=== PATIENT | female | born 1995 | race Caucasian/White ===

== ENCOUNTER 2017-03-19 22:11 | Observation (INO) | payer OTHER ==
[2017-03-20] MEDS ORDERED: NS 0.9% 1000 ML* 1,000 ML IV ONE (02:19)
[2017-03-20 03:01] LABS: Hematocrit 43 % (35-47); Hemoglobin 14.7 g/dl (12.0-16.0); Mean Corpuscular HGB Conc 34 g/dl (31-36); Mean Corpuscular Hemoglobin 29 pg (27-31); Mean Corpuscular Volume 86 fL (80-97); Mean Platelet Volume 8 um3 (7.4-10.4); Red Blood Count 5.04 10^6/ul (4.0-5.4); Red Cell Distribution Width 13 % (10.5-15)
[2017-03-20 03:13] LABS: Urine Bacteria 1+ (Absent); Urine Bilirubin Negative (Negative); Urine Glucose Negative (Negative); Urine Nitrite Negative (Negative)
[2017-03-20 03:17] LABS: ALT 11 U/L (7-52); AST 10 U/L (13-39); Albumin 3.8 g/dL (3.2-5.2); Alkaline Phosphatase 61 U/L (34-104); Anion Gap 9 mmol/L (2-11); BUN/Creatinine Ratio 14.3 (8-20); Blood Urea Nitrogen 10 mg/dL (6-24); C Reactive Protein 12.47 mg/L (< 5.00); CO2 Carbon Dioxide 24 mmol/L (22-32); Calcium 9.6 mg/dL (8.6-10.3); Chloride 103 mmol/L (101-111); Cholesterol 243 mg/dL; EGFR African American 134.6 (>60); EGFR Non-African American 104.6 (>60); Globulin 3.4 g/dL (2-4); Glucose 89 mg/dL (70-100); HDL Cholesterol 64.8 mg/dL; LDL Cholesterol 156 mg/dL; Potassium 3.5 mmol/L (3.5-5.0); Sodium 136 mmol/L (133-145); Total Protein 7.2 g/dL (6.4-8.9); Triglycerides 111 mg/dL
[2017-03-20 04:00] LABS: Erythrocyte Sed Rate 13 mm/Hr (0-14)
[2017-03-20] MEDS ORDERED: oxyCODONE/Acetamin 5/325 MG* TAB PO ONE (04:36)
[2017-03-20] MEDS ORDERED: Aspirin TAB* 325 MG PO ONE (04:59)
--- NOTE | 2017-03-20 05:05 | HP ---
H&P (Free Text) History and Physical: PCP: Ootniel Valera MD Date/Time of Evaluation: 03/20/2017 0505 CC: RUE W/N/T & slurred speech HPI: Ms Simon is a super morbidly obese 21YO female HX papilledema 2nd L optic neuritis recently diagnosed and undergoing outpatient work up with an MRI scheduled for Wednesday. She presents tonight relating rapid onset at ~2130 of R hand W/N/T and incoordination spreading up the RUE and into the R jaw with associated slurred speech. She also had a L retro-orbital dull headache which has previously been associated with her optic neuritis, although this evening she also had blurring in her R eye. She denies chest pain, SOB, palpitations, light-headedness, sweats, F/C, N/V, or other issues. The symptoms lasted for ~ 90 minutes before spontaneously resolving. She has no history of similar. She denies exacerbating or alleviating factors. PMedHx depression Ambulatory Orders Prozac CAP* 25 mg PO DAILY 04/02/14 Control Pill* 1 tab PO DAILY 05/09/15 Cyclobenzaprine TAB* [Flexeril TAB*] 10 mg PO 05/09/15 Gabapentin CAP(*) [Neurontin CAP(*)] 300 mg PO DAILY 05/09/15 Naproxen TAB* [Naprosyn TAB*] 500 mg PO PRN 05/09/15 Allergies No Known Allergies Allergy (Verified 03/19/17 09:41) PSurgHx B foot surgery SocHx: no tobacco, rare alcohol, denies recreational drugs; lives with a roommate; unemployed; full code status FamHx: Mother & Father: healthy; otherwise positive for HTN ROS: as above, otherwise reviewed and all were negative Constitutional: NAD, normally developed, super morbidly obese white female vitals: Vital Signs Temp 36.6 C 03/19/17 22:19 Pulse 109 03/19/17 22:19 Resp 18 03/20/17 04:48 BP 139/92 03/19/17 22:19 Pulse Ox 97 03/20/17 02:55 Intake & Output 03/19/17 03/19/17 03/20/17 11:59 23:59 11:59 Weight 141.974 kg HEENM: atraumatic; sclera/conjunctiva: non-icteric/clear; hearing: clinically intact; oropharynx: clear, mucosa moist Neck: soft tissue: non-tender, no nuchal rigidity; thyroid: normal Pulmonary: clear to auscultation bilaterally, good aeration, no accessory muscle use CV: RR/RR, normal S1S2, no carotid bruit, no jugular venous distention, 2+ B DP/ PT, no edema Abdominal: soft, non-distended, non-tender, no rebound/guarding/rigidity, normoactive bowel sounds, no hepatosplenomegaly or masses, no costovertebral angle tenderness Musculoskeletal: general: grossly intact, no palpable tenderness Integumental: normal appearance and texture of exposed skin Neurological cranial nerves II: visual solano intact III/IV/: symmetric light reflex, EOMI/PERRLA, intact convergence & accommodation V: intact corneal reflex, facial sensation, & mastication VII: symmetric facial symmetry VIII: hearing intact AU IX/X: symmetric palatal motion, no dysarthria XI: intact shoulder shrug XII: midline tongue protrusion, normal voice articulation motor LUE: 4+/5 proximally, distally, & ela teacher strength RUE: 4+/5 proximally, distally, & ela teacher strength LLE: 4+/5 proximally & distally RLE: 4+/5 proximally & distally coordination finger/nose: symmetric, intact heal/esquivel: symmetric, intact sensory crude touch: intact globally pinprick: intact globally vibration: intact globally proprioception: intact globally DTRs biceps: 2+ B triceps: 2+ B brachioradialis: 2+ B patellar: 2+ B Achilles: 2+ B Babinski: equivocal B Psychiatric orientation: AA&O to PPS affect: calm mood: cooperative eye contact: good content: reliable responses: timely insight: good Testing: Lab Results 03/20/17 03/20/17 03/20/17 Range/Units 02:51 02:51 02:51 WBC 11.0 H (3.5-10.8) 10^3/ul RBC 5.04 (4.0-5.4) 10^6/ul Hgb 14.7 (12.0-16.0) g/dl Hct 43 (35-47) % MCV 86 (80-97) fL MCH 29 (27-31) pg MCHC 34 (31-36) g/dl RDW 13 (10.5-15) % Plt Count 356 (150-450) 10^3/ul MPV 8 (7.4-10.4) um3 Neut % (Auto) 68.8 (38-83) % Lymph % (Auto) 24.6 L (25-47) % Brule % (Auto) 5.9 (1-9) % Eos % (Auto) 0.4 (0-6) % Baso % (Auto) 0.3 (0-2) % Absolute Neuts (auto) 7.5 (1.5-7.7) 10^3/ul Absolute Lymphs (auto) 2.7 (1.0-4.8) 10^3/ul Absolute Monos (auto) 0.6 (0-0.8) 10^3/ul Absolute Eos (auto) 0 (0-0.6) 10^3/ul Absolute Basos (auto) 0 (0-0.2) 10^3/ul Absolute Nucleated RBC 0.01 10^3/ul Nucleated RBC % 0.1 ESR 13 (0-14) mm/Hr INR (Anticoag Therapy) 0.99 (0.89-1.11) APTT 27.4 (26.0-36.3) seconds Sodium 136 (133-145) mmol/L Potassium 3.5 (3.5-5.0) mmol/L Chloride 103 (101-111) mmol/L Carbon Dioxide 24 (22-32) mmol/L Anion Gap 9 (2-11) mmol/L BUN 10 (6-24) mg/dL Creatinine 0.70 (0.51-0.95) mg/dL Est GFR ( Amer) 134.6 (>60) Est GFR (Non-Af Amer) 104.6 (>60) BUN/Creatinine Ratio 14.3 (8-20) Glucose 89 (70-100) mg/dL Lactic Acid (0.5-2.0) mmol/L Calcium 9.6 (8.6-10.3) mg/dL Total Bilirubin 0.40 (0.2-1.0) mg/dL AST 10 L (13-39) U/L ALT 11 (7-52) U/L Alkaline Phosphatase 61 (34-104) U/L Troponin I 0.00 (<0.04) ng/mL C-Reactive Protein 12.47 H (< 5.00) mg/L Total Protein 7.2 (6.4-8.9) g/dL Albumin 3.8 (3.2-5.2) g/dL Globulin 3.4 (2-4) g/dL Albumin/Globulin Ratio 1.1 (1-3) Triglycerides 111 mg/dL Cholesterol 243 mg/dL LDL Cholesterol 156 mg/dL HDL Cholesterol 64.8 mg/dL Beta HCG, Quant < 0.60 mIU/mL Urine Color Urine Appearance Urine pH (5-9) Ur Specific [place] (1.010-1.030) Urine Protein (Negative) Urine Ketones (Negative) Urine Blood (Negative) Urine Nitrate (Negative) Urine Bilirubin (Negative) Urine Urobilinogen (Negative) Ur Leukocyte Esterase (Negative) Urine WBC (Auto) (Absent) Urine RBC (Auto) (Absent) Ur Squamous Epith Cells (Absent) Urine Bacteria (Absent) Urine Glucose (Negative) 03/20/17 03/20/17 Range/Units 02:51 02:51 WBC (3.5-10.8) 10^3/ul RBC (4.0-5.4) 10^6/ul Hgb (12.0-16.0) g/dl Hct (35-47) % MCV (80-97) fL MCH (27-31) pg MCHC (31-36) g/dl RDW (10.5-15) % Plt Count (150-450) 10^3/ul MPV (7.4-10.4) um3 Neut % (Auto) (38-83) % Lymph % (Auto) (25-47) % Brule % (Auto) (1-9) % Eos % (Auto) (0-6) % Baso % (Auto) (0-2) % Absolute Neuts (auto) (1.5-7.7) 10^3/ul Absolute Lymphs (auto) (1.0-4.8) 10^3/ul Absolute Monos (auto) (0-0.8) 10^3/ul Absolute Eos (auto) (0-0.6) 10^3/ul Absolute Basos (auto) (0-0.2) 10^3/ul Absolute Nucleated RBC 10^3/ul Nucleated RBC % ESR (0-14) mm/Hr INR (Anticoag Therapy) (0.89-1.11) APTT (26.0-36.3) seconds Sodium (133-145) mmol/L Potassium (3.5-5.0) mmol/L Chloride (101-111) mmol/L Carbon Dioxide (22-32) mmol/L Anion Gap (2-11) mmol/L BUN (6-24) mg/dL Creatinine (0.51-0.95) mg/dL Est GFR ( Amer) (>60) Est GFR (Non-Af Amer) (>60) BUN/Creatinine Ratio (8-20) Glucose (70-100) mg/dL Lactic Acid 1.5 (0.5-2.0) mmol/L Calcium (8.6-10.3) mg/dL Total Bilirubin (0.2-1.0) mg/dL AST (13-39) U/L ALT (7-52) U/L Alkaline Phosphatase (34-104) U/L Troponin I (<0.04) ng/mL C-Reactive Protein (< 5.00) mg/L Total Protein (6.4-8.9) g/dL Albumin (3.2-5.2) g/dL Globulin (2-4) g/dL Albumin/Globulin Ratio (1-3) Triglycerides mg/dL Cholesterol mg/dL LDL Cholesterol mg/dL HDL Cholesterol mg/dL Beta HCG, Quant mIU/mL Urine Color Yellow Urine Appearance Cloudy Urine pH 5.0 (5-9) Ur Specific [place] 1.026 (1.010-1.030) Urine Protein Negative (Negative) Urine Ketones 1+ H (Negative) Urine Blood Negative (Negative) Urine Nitrate Negative (Negative) Urine Bilirubin Negative (Negative) Urine Urobilinogen Negative (Negative) Ur Leukocyte Esterase 2+ H (Negative) Urine WBC (Auto) 1+(6-10/hpf) H (Absent) Urine RBC (Auto) 1+(3-5/hpf) H (Absent) Ur Squamous Epith Cells Present H (Absent) Urine Bacteria 1+ H (Absent) Urine Glucose Negative (Negative) ECG, personally reviewed: sinus tachycardia rate 128, no ischemia CT brain WO, personally reviewed: IMPRESSION: No acute intracranial hemorrhage mass effect or midline shift. If clinically indicated followup outpatient MRI of brain may be needed. Impression: 21F presenting with TIA vs complex migraine DIAGNOSIS & PLAN Primary TIA vs complex migraine : neurochecks : telemetry : aspirin : supplemental oxygen : recheck CT brain WO this afternoon : consider neurology consult in AM : supportive care papilledema : continue outpatient follow up with ophthalmology : keep MRI brain appointment scheduled Secondary depression : continue fluoxetine Admission Rational: CDU observation for TIA vs complex migraine DVTp: SCDs & heparin SQ Code Status: full
--- NOTE | 2017-03-20 07:17 | ED ---
Ileana Hensley SooYoung, scribed for Ke Palencia MD on 03/20/17 at 0214 . Neurological HPI - HPI Summary HPI Summary: A 21 y/o F presents to ED with c/o severe L-parietal BLACKMAN onset approx 2129 yesterday. Associated sx: UE numbness radiating to jaw and torso; blurry vision , weakness, difficulty finding words since resolved, slurred speech since resolved, loss of coordination, hot and cold flashes, confusion. Numbness in UE was the initial sx, has since resolved, and the BLACKMAN followed briefly afterwards. Episode of numbness lasted approx 30 minutes. Pt denies LE changes, hearing changes, recent illness. PMHx: BLACKMAN, recent dx of optic neuritis. She's scheduled to get an MRI in three days for swollen optic nerve. She states she's lost about half the vision in her L eye onset 1 week ago. She also had a severe BLACKMAN two weeks ago. The sx today are different than the sx she had with her optic neuritis. Pt takes control. 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 Onset/Duration: Sudden Onset, Started days ago, Still Present Timing: Constant Onset Severity: Severe Current Severity: Moderate Headache Location: Parietal (Left) Pain Intensity: 7 - out of 10 Associated Signs and Symptoms: Positive: Visual Changes, Headache, Confusion, Weakness, Impaired Speech, Numbness - UE radiating to jaw and torso - Allergy/Home Medications Allergies/Adverse Reactions: Allergies Allergy/AdvReac Type Severity Reaction Status Date / Time No Known Allergies Allergy Verified 03/19/17 09:41 PMH/Surg Hx/FS Hx/Imm Hx Previously Healthy: No Endocrine/Hematology History: Denies: Hx Diabetes Cardiovascular History: Denies: Hx Hypertension - BLOOD PRESSURE HAS BEEN ELEVATED WITH SYMPTS - NO MEDS, Hx Pacemaker/ICD Respiratory History: Denies: Hx Asthma History: Denies: Hx Renal Disease Sensory History: Denies: Hx Hearing Aid Psychiatric History: Reports: Hx Panic Disorder - Surgical History Surgery Procedure, Year, and Place: BI-LATERAL FEET SURGERY TO REMOVE BONE; Infectious Disease History: No Infectious Disease History: Denies: Traveled Outside the [place] in Last 30 Days - Family History Known Family History: Positive: Cardiac Disease, Other - CVA - Social History Occupation: Employed Full-time Lives: With Family - friend Alcohol Use: None Hx Substance Use: No Substance Use Type: Reports: None Hx Tobacco Use: No Smoking Status (MU): Never Smoked Tobacco Review of Systems Positive: Other - pos: hot/cold flashes Positive: Blurred Vision Positive: Other - neg: hearing changes Positive: Other - neg: LE changes Neurological: Other - pos: confusion, loss of coordination, difficulty finding words Positive: Headache - severe, Weakness, Numbness - UE, Slurred Speech All Other Systems Reviewed And Are Negative: Yes Physical Exam - Summary Physical Exam Summary: The patient is well-nourished in no acute distress and in no acute pain. The skin is warm and dry and skin color reflects adequate perfusion. HEENT: The head is normocephalic and atraumatic. The pupils are equal and reactive. EOMI/BROOKE. No nystagmus. Some loss of visual acuity on medial superoinferior cuts of L eye. The conjunctivae are clear and without drainage. Nares are patent and without drainage. Mouth reveals moist mucous membranes and the throat is without erythema and exudate. Tongue is mid-line. The external ears are intact. The ear canals are patent and without drainage. The tympanic membranes are intact. Neck is supple with full range of motion and non-tender. There are no carotid bruits. There is no neck vein distension. Respiratory: Chest is non-tender. Lungs are clear to auscultation and breath sounds are symmetrical and equal. Cardiovascular: Tachycardia. There is no murmur or rub auscultated. There is no peripheral edema and pulses are symmetrical and equal. Abdomen: The abdomen is soft, obese, and non-tender. There are normal bowel sounds heard in all four quadrants and there is no organomegaly palpated. Musculoskeletal: There is no back pain noted. Extremities are non-tender with full range of motion. There is good capillary refill. There is no peripheral edema or calf tenderness elicited. Neurological: Patient is alert and oriented to person, place and time. Speech is appropriate. The patient has symmetrical motor strength in all four extremities. Cranial nerves 2-12 are intact. No facial droop, no facial numbness. Deep tendon reflexes are symmetrical and equal in all four extremities. Negative finger to nose, negative heel to esquivel. Negative Babinski. Psychiatric: The patient has an appropriate affect and does not exhibit any anxiety or depression. Triage Information Reviewed: Yes Vital Signs On Initial Exam: Initial Vitals Temp Pulse Resp BP Pulse Ox 98 F 109 20 139/92 97 03/19/17 22:19 03/19/17 22:19 03/19/17 22:19 03/19/17 22:19 03/19/17 22:19 Vital Signs Reviewed: Yes - [place] Coma Scale Coma Scale Total: 15 Diagnostics - Vital Signs Vital Signs Temp Pulse Resp BP Pulse Ox 03/19/17 22:19 98 F 109 20 139/92 97 - Laboratory Lab Results: Lab Results 03/20/17 03/20/17 03/20/17 Range/Units 02:51 02:51 02:51 WBC 11.0 H (3.5-10.8) 10^3/ul RBC 5.04 (4.0-5.4) 10^6/ul Hgb 14.7 (12.0-16.0) g/dl Hct 43 (35-47) % MCV 86 (80-97) fL MCH 29 (27-31) pg MCHC 34 (31-36) g/dl RDW 13 (10.5-15) % Plt Count 356 (150-450) 10^3/ul MPV 8 (7.4-10.4) um3 Neut % (Auto) 68.8 (38-83) % Lymph % (Auto) 24.6 L (25-47) % [place] % (Auto) 5.9 (1-9) % Eos % (Auto) 0.4 (0-6) % Baso % (Auto) 0.3 (0-2) % Absolute Neuts (auto) 7.5 (1.5-7.7) 10^3/ul Absolute Lymphs (auto) 2.7 (1.0-4.8) 10^3/ul Absolute Monos (auto) 0.6 (0-0.8) 10^3/ul Absolute Eos (auto) 0 (0-0.6) 10^3/ul Absolute Basos (auto) 0 (0-0.2) 10^3/ul Absolute Nucleated RBC 0.01 10^3/ul Nucleated RBC % 0.1 ESR 13 (0-14) mm/Hr INR (Anticoag Therapy) 0.99 (0.89-1.11) APTT 27.4 (26.0-36.3) seconds Sodium 136 (133-145) mmol/L Potassium 3.5 (3.5-5.0) mmol/L Chloride 103 (101-111) mmol/L Carbon Dioxide 24 (22-32) mmol/L Anion Gap 9 (2-11) mmol/L BUN 10 (6-24) mg/dL Creatinine 0.70 (0.51-0.95) mg/dL Est GFR ( Amer) 134.6 (>60) Est GFR (Non-Af Amer) 104.6 (>60) BUN/Creatinine Ratio 14.3 (8-20) Glucose 89 (70-100) mg/dL Lactic Acid (0.5-2.0) mmol/L Calcium 9.6 (8.6-10.3) mg/dL Total Bilirubin 0.40 (0.2-1.0) mg/dL AST 10 L (13-39) U/L ALT 11 (7-52) U/L Alkaline Phosphatase 61 (34-104) U/L Troponin I 0.00 (<0.04) ng/mL C-Reactive Protein 12.47 H (< 5.00) mg/L Total Protein 7.2 (6.4-8.9) g/dL Albumin 3.8 (3.2-5.2) g/dL Globulin 3.4 (2-4) g/dL Albumin/Globulin Ratio 1.1 (1-3) Triglycerides 111 mg/dL Cholesterol 243 mg/dL LDL Cholesterol 156 mg/dL HDL Cholesterol 64.8 mg/dL Beta HCG, Quant < 0.60 mIU/mL Urine Color Urine Appearance Urine pH (5-9) Ur Specific [place] (1.010-1.030) Urine Protein (Negative) Urine Ketones (Negative) Urine Blood (Negative) Urine Nitrate (Negative) Urine Bilirubin (Negative) Urine Urobilinogen (Negative) Ur Leukocyte Esterase (Negative) Urine WBC (Auto) (Absent) Urine RBC (Auto) (Absent) Ur Squamous Epith Cells (Absent) Urine Bacteria (Absent) Urine Glucose (Negative) 09/09/17 09/09/17 Range/Units 02:51 02:51 WBC (3.5-10.8) 10^3/ul RBC (4.0-5.4) 10^6/ul Hgb (12.0-16.0) g/dl Hct (35-47) % MCV (80-97) fL MCH (27-31) pg MCHC (31-36) g/dl RDW (10.5-15) % Plt Count (150-450) 10^3/ul MPV (7.4-10.4) um3 Neut % (Auto) (38-83) % Lymph % (Auto) (25-47) % [place] % (Auto) (1-9) % Eos % (Auto) (0-6) % Baso % (Auto) (0-2) % Absolute Neuts (auto) (1.5-7.7) 10^3/ul Absolute Lymphs (auto) (1.0-4.8) 10^3/ul Absolute Monos (auto) (0-0.8) 10^3/ul Absolute Eos (auto) (0-0.6) 10^3/ul Absolute Basos (auto) (0-0.2) 10^3/ul Absolute Nucleated RBC 10^3/ul Nucleated RBC % ESR (0-14) mm/Hr INR (Anticoag Therapy) (0.89-1.11) APTT (26.0-36.3) seconds Sodium (133-145) mmol/L Potassium (3.5-5.0) mmol/L Chloride (101-111) mmol/L Carbon Dioxide (22-32) mmol/L Anion Gap (2-11) mmol/L BUN (6-24) mg/dL Creatinine (0.51-0.95) mg/dL Est GFR ( Amer) (>60) Est GFR (Non-Af Amer) (>60) BUN/Creatinine Ratio (8-20) Glucose (70-100) mg/dL Lactic Acid 1.5 (0.5-2.0) mmol/L Calcium (8.6-10.3) mg/dL Total Bilirubin (0.2-1.0) mg/dL AST (13-39) U/L ALT (7-52) U/L Alkaline Phosphatase (34-104) U/L Troponin I (<0.04) ng/mL C-Reactive Protein (< 5.00) mg/L Total Protein (6.4-8.9) g/dL Albumin (3.2-5.2) g/dL Globulin (2-4) g/dL Albumin/Globulin Ratio (1-3) Triglycerides mg/dL Cholesterol mg/dL LDL Cholesterol mg/dL HDL Cholesterol mg/dL Beta HCG, Quant mIU/mL Urine Color Yellow Urine Appearance Cloudy Urine pH 5.0 (5-9) Ur Specific [place] 1.026 (1.010-1.030) Urine Protein Negative (Negative) Urine Ketones 1+ H (Negative) Urine Blood Negative (Negative) Urine Nitrate Negative (Negative) Urine Bilirubin Negative (Negative) Urine Urobilinogen Negative (Negative) Ur Leukocyte Esterase 2+ H (Negative) Urine WBC (Auto) 1+(6-10/hpf) H (Absent) Urine RBC (Auto) 1+(3-5/hpf) H (Absent) Ur Squamous Epith Cells Present H (Absent) Urine Bacteria 1+ H (Absent) Urine Glucose Negative (Negative) Result Diagrams: 03/20/17 02:51 03/20/17 02:51 Lab Statement: Any lab studies that have been ordered have been reviewed, and results considered in the medical decision making process. - CT HEAD CT CT Interpretation: No Acute Changes - IMPRESSION: No acute intracranial hemorrhage mass effect or midline shift. If clinically indicated, follow up outpatient MRI of brain may be needed. ED physician has reviewed this radiology report and agrees. CT Interpretation Completed By: Radiologist - EKG 0305 Cardiac Rate: Tachycardia - 128bpm EKG Rhythm: Sinus Rhythm ST Segment: Non-Specific NIH Scale - NIH Scale Level of Consciousness: Alert/Keenly Responsive Ask Patient the Month and His/Her Age: Both Correct Ask Pt to Open/Close Eyes and Business And Financial Counsel/Release Non-Paretic Hand: Both Correctly Best Gaze (Only Horizontal Eye Movement): Normal Visual Field Testing: No Visual Loss Facial Paresis-Pt to Smile & Close Eyes or Grimace Symmetry: Normal/Symmetrical Motor Function - Right Arm: No Drift-Holds 10 Seconds Motor Function - Left Arm: No Drift-Holds 10 Seconds Motor Function - Right Leg: No Drift-Holds 10 Seconds Motor Function - Left Leg: No Drift-Holds 10 Seconds Limb Ataxia-Must be out of Proportion to Weakness Present: Absent Sensory (Use Pinprick to Test Arms/Legs/Trunk/Face): Normal Best Language (Describe Picture, Name Items): No Aphasia Dysarthria (Read Several Words): Normal Extinction and Inattention: No Abnormality Total Score: 0 Re-Evaluation - Re-Evaluation 1 Re-Evaluation Time: 04:35 Change: Worse Comment: Discussing results with pt and family. Pt states BLACKMAN is worsening. Will order Percocet. Course/Dx - Course Course Of Treatment: Pt is a 21 y/o F present with c/o severe L-parietal BLACKMAN onset approx 2129 yesterday. Associated sx: UE numbness radiating to jaw and torso; blurry vision, weakness, difficulty finding words since resolved, slurred speech since resolved, loss of coordination, hot and cold flashes, confusion. Numbness in UE was the initial sx, has since resolved, and the BLACKMAN followed briefly afterwards. Episode of numbness lasted approx 30 minutes. Pt denies LE changes, hearing changes, recent illness. PMHx: BLACKMAN, recent dx of optic neuritis. She's scheduled to get an MRI in three days for swollen optic nerve. She states she's lost about half the vision in her L eye. Pt takes control. Bloodwork is without significant abnormality except elevated CRP. UA results show 1+ ketones, 2+ esterase, 1+ WBC, 1+ RBC, 1+ bacteria, squamous epithelia present. EKG is sinus tachy, non-specific ST changes. Head CT shows no acute findings. Consulted with hospitalist, will admit pt. - Differential Dx Differential Diagnoses Neuro: Positive: Cerebrovascular Accident, Migraine, Transient Ischemic Attack - Diagnoses Provider Diagnoses: TIA (transient ischemic attack) - Physician Notifications Discussed Care Of Patient With: Forrest Srinivasan - hospitalist Time Discussed With Above Provider: 04:59 Instructed by Provider To: Admit As Inpatient Discharge - Discharge Plan Condition: Stable Disposition: ADMITTED TO [facility] The documentation as recorded by the Ileana sequeira SooYoung accurately reflects the service I personally performed and the decisions made by me, Ke Palencia MD.
--- NOTE | 2017-03-20 08:58 | RAD ---
INDICATION: Left-sided headache, slurred speech and right upper extremity weakness. COMPARISON: None. TECHNIQUE: Contiguous axial sections of the brain were obtained from the skull base to the vertex without contrast. FINDINGS: The ventricles, cisterns and sulci are within normal limits. The vital-white matter differentiation is adequately maintained and there is no sulcal effacement. No significant focal abnormality or mass effect is present. There is no evidence for intracranial hemorrhage. No significant focal osseous abnormality is present. The visualized portion of the paranasal sinuses and mastoid air cells appear clear. IMPRESSION: Normal CT of the brain.
[2017-03-20] MEDS: Acetaminophen TAB* 325 MG PO PRN ×2 (09:02→15:41)
[2017-03-20] MEDS ORDERED: Iohexol 350* (CONTRAST) 500 ML MDV IV ONE (10:38)
--- NOTE | 2017-03-20 12:19 | PN ---
Subjective Date of Service: 03/20/17 Interval History: pt c/o frontal and occipital headache, severe x 2 weeks. i week ago lost peripheral vision in left eye, went to Dr. Verduzco who ordered an MRI and told pt that her optic discs b/l are swollen. Yesterday she had a 90 mi episode of discoordination UE's speaking things that "didn't make sense" and R arm and chest numbness today headache is gone but her vision is still diminished in left eye Objective Active Medications: Acetaminophen (Tylenol Tab*) 650 mg PO Q6H PRN PRN Reason: FEVER/PAIN Last Admin: 03/20/17 09:02 Dose: 650 mg Aspirin (Aspirin Ec Low Dose*) 81 mg PO DAILY BERNARDO Vital Signs 03/20/17 03/20/17 05:33 06:00 Temperature 97.8 F Pulse Rate 108 113 Respiratory 20 20 Rate Blood Pressure 150/89 137/97 (mmHg) O2 Sat by Pulse 99 99 Oximetry Oxygen Devices in Use Now: None Appearance: 21 yo F, obese in nAD, AAOx3 Eyes: No Scleral Icterus, PERRLA Ears/Nose/Mouth/Throat: NL Teeth, Lips, Gums, Mucous Membranes Moist Neck: NL Appearance and Movements; NL JVP, Trachea Midline Respiratory: Symmetrical Chest Expansion and Respiratory Effort, Clear to Auscultation Cardiovascular: NL Sounds; No Murmurs; No JVD, RRR Abdominal: NL Sounds; No Tenderness; No Distention Lymphatic: No Cervical Adenopathy Extremities: No Edema, No Clubbing, Cyanosis Skin: No Rash or Ulcers, No Nodules or Sclerosis Neurological: Alert and Oriented x 3, NL Muscle Strength and Tone, - - possible small visual field cut peripherally in left eye Result Diagrams: 03/20/17 02:51 03/20/17 02:51 Additional Lab and Data: Lab Results 03/20/17 03/20/17 03/20/17 Range/Units 02:51 02:51 02:51 WBC 11.0 H (3.5-10.8) 10^3/ul RBC 5.04 (4.0-5.4) 10^6/ul Hgb 14.7 (12.0-16.0) g/dl Hct 43 (35-47) % MCV 86 (80-97) fL MCH 29 (27-31) pg MCHC 34 (31-36) g/dl RDW 13 (10.5-15) % Plt Count 356 (150-450) 10^3/ul MPV 8 (7.4-10.4) um3 Neut % (Auto) 68.8 (38-83) % Lymph % (Auto) 24.6 L (25-47) % [place] % (Auto) 5.9 (1-9) % Eos % (Auto) 0.4 (0-6) % Baso % (Auto) 0.3 (0-2) % Absolute Neuts (auto) 7.5 (1.5-7.7) 10^3/ul Absolute Lymphs (auto) 2.7 (1.0-4.8) 10^3/ul Absolute Monos (auto) 0.6 (0-0.8) 10^3/ul Absolute Eos (auto) 0 (0-0.6) 10^3/ul Absolute Basos (auto) 0 (0-0.2) 10^3/ul Absolute Nucleated RBC 0.01 10^3/ul Nucleated RBC % 0.1 ESR 13 (0-14) mm/Hr INR (Anticoag Therapy) 0.99 (0.89-1.11) APTT 27.4 (26.0-36.3) seconds Sodium 136 (133-145) mmol/L Potassium 3.5 (3.5-5.0) mmol/L Chloride 103 (101-111) mmol/L Carbon Dioxide 24 (22-32) mmol/L Anion Gap 9 (2-11) mmol/L BUN 10 (6-24) mg/dL Creatinine 0.70 (0.51-0.95) mg/dL Est GFR ( Amer) 134.6 (>60) Est GFR (Non-Af Amer) 104.6 (>60) BUN/Creatinine Ratio 14.3 (8-20) Glucose 89 (70-100) mg/dL Lactic Acid (0.5-2.0) mmol/L Calcium 9.6 (8.6-10.3) mg/dL Total Bilirubin 0.40 (0.2-1.0) mg/dL AST 10 L (13-39) U/L ALT 11 (7-52) U/L Alkaline Phosphatase 61 (34-104) U/L Troponin I 0.00 (<0.04) ng/mL C-Reactive Protein 12.47 H (< 5.00) mg/L Total Protein 7.2 (6.4-8.9) g/dL Albumin 3.8 (3.2-5.2) g/dL Globulin 3.4 (2-4) g/dL Albumin/Globulin Ratio 1.1 (1-3) Triglycerides 111 mg/dL Cholesterol 243 mg/dL LDL Cholesterol 156 mg/dL HDL Cholesterol 64.8 mg/dL Beta HCG, Quant < 0.60 mIU/mL Urine Color Urine Appearance Urine pH (5-9) Ur Specific Wilson (1.010-1.030) Urine Protein (Negative) Urine Ketones (Negative) Urine Blood (Negative) Urine Nitrate (Negative) Urine Bilirubin (Negative) Urine Urobilinogen (Negative) Ur Leukocyte Esterase (Negative) Urine WBC (Auto) (Absent) Urine RBC (Auto) (Absent) Ur Squamous Epith Cells (Absent) Urine Bacteria (Absent) Urine Glucose (Negative) 03/20/17 03/20/17 Range/Units 02:51 02:51 WBC (3.5-10.8) 10^3/ul RBC (4.0-5.4) 10^6/ul Hgb (12.0-16.0) g/dl Hct (35-47) % MCV (80-97) fL MCH (27-31) pg MCHC (31-36) g/dl RDW (10.5-15) % Plt Count (150-450) 10^3/ul MPV (7.4-10.4) um3 Neut % (Auto) (38-83) % Lymph % (Auto) (25-47) % [place] % (Auto) (1-9) % Eos % (Auto) (0-6) % Baso % (Auto) (0-2) % Absolute Neuts (auto) (1.5-7.7) 10^3/ul Absolute Lymphs (auto) (1.0-4.8) 10^3/ul Absolute Monos (auto) (0-0.8) 10^3/ul Absolute Eos (auto) (0-0.6) 10^3/ul Absolute Basos (auto) (0-0.2) 10^3/ul Absolute Nucleated RBC 10^3/ul Nucleated RBC % ESR (0-14) mm/Hr INR (Anticoag Therapy) (0.89-1.11) APTT (26.0-36.3) seconds Sodium (133-145) mmol/L Potassium (3.5-5.0) mmol/L Chloride (101-111) mmol/L Carbon Dioxide (22-32) mmol/L Anion Gap (2-11) mmol/L BUN (6-24) mg/dL Creatinine (0.51-0.95) mg/dL Est GFR ( Amer) (>60) Est GFR (Non-Af Amer) (>60) BUN/Creatinine Ratio (8-20) Glucose (70-100) mg/dL Lactic Acid 1.5 (0.5-2.0) mmol/L Calcium (8.6-10.3) mg/dL Total Bilirubin (0.2-1.0) mg/dL AST (13-39) U/L ALT (7-52) U/L Alkaline Phosphatase (34-104) U/L Troponin I (<0.04) ng/mL C-Reactive Protein (< 5.00) mg/L Total Protein (6.4-8.9) g/dL Albumin (3.2-5.2) g/dL Globulin (2-4) g/dL Albumin/Globulin Ratio (1-3) Triglycerides mg/dL Cholesterol mg/dL LDL Cholesterol mg/dL HDL Cholesterol mg/dL Beta HCG, Quant mIU/mL Urine Color Yellow Urine Appearance Cloudy Urine pH 5.0 (5-9) Ur Specific Wilson 1.026 (1.010-1.030) Urine Protein Negative (Negative) Urine Ketones 1+ H (Negative) Urine Blood Negative (Negative) Urine Nitrate Negative (Negative) Urine Bilirubin Negative (Negative) Urine Urobilinogen Negative (Negative) Ur Leukocyte Esterase 2+ H (Negative) Urine WBC (Auto) 1+(6-10/hpf) H (Absent) Urine RBC (Auto) 1+(3-5/hpf) H (Absent) Ur Squamous Epith Cells Present H (Absent) Urine Bacteria 1+ H (Absent) Urine Glucose Negative (Negative) Assess/Plan/Problems-Billing Assessment: 21 yo F with h/o of obesity, on BCP presents with headache and visual changes + left arm numbness that resolved - Patient Problems (1) Visual field defect Comment: assiociated with possible optic disc edema and headache as well as transient left arm numbness. differential inculdes: pseudotumor cerebri, atypical migraine, venous sinus thrombosis, CVA D/w Dr. Trinh who will see pt in consult for now cont ASA and neurochecks (2) DVT prophylaxis Comment: ambulation Status and Disposition: OBV
[2017-03-20] MEDS ORDERED: Midazolam* 1 MG/ML 10 ML VIAL (10 MG) ONE (13:12)
[2017-03-20] MEDS ORDERED: fentaNYL* 50 MCG/ML 2 ML VIAL (100 MCG VIAL) ONE (13:12)
--- NOTE | 2017-03-20 13:23 | RAD ---
INDICATION: 2 weeks of left-sided headache and patient that experienced a aphasia and right facial and upper extremity numbness. COMPARISON: Same day noncontrast CT of the brain that did not reveal any acute abnormalities. TECHNIQUE: A CT angiogram of the head only was performed with cc of Omnipaque 350. Contiguous axial sections were obtained from the foramen magnum through the [place] of [place] during arterial and venous phase imaging. Images were reconstructed in the sagittal, coronal planes and in a 3-D volume rendered format. Findings: Arterial phase: The internal carotid, anterior and middle cerebral arteries appear are patent without high grade stenosis or occlusion. The vertebral, basilar and posterior cerebral arteries appear patent without high grade stenosis or occlusion. The left vertebral artery is dominant. The right posterior communicating artery is either absence or extremely diminutive. The left posterior communicating artery is diminutive. No focal luminal filling defect, aneurysm or vascular malformation is seen. VENOUS PHASE: The sagittal sinus is diminutive but there are no focal intraluminal filling defects. There is continuous filling into the right transverse sinus but there is no filling seen in the left transverse sinus. The straight sinus is also narrow but appears to fill adequately without luminal filling defect (sagittal image 27/53). The visualized portions of the internal jugular vein shows the right to be dominant IMPRESSION: 1. No acute abnormalities on the arterial phase CT angiography of the head. 2. The left transverse sinus is either occluded by intraluminal thrombus or congenitally absent/diminutive relative to the right side. The remaining large dural sinuses and the superior most portions of the internal jugular veins do not exhibit focal luminal thrombosis.
[2017-03-20] MEDS ORDERED: Midazolam* 1 MG/ML 5 ML VIAL (5 MG) ONE ×2 (14:00→14:37)
[2017-03-20] MEDS ORDERED: Bupivacaine 0.25% SDV* 30 ML ONE (14:11)
--- NOTE | 2017-03-20 15:40 | CONS ---
NEUROLOGY CONSULTATION: DATE OF CONSULT: 03/20/17 LOCATION: The patient is an inpatient. REQUESTING PHYSICIAN: Magalys Cancino MD. CHIEF COMPLAINT: Headache and focal neurologic symptoms. HISTORY OF PRESENT ILLNESS: Molly Smion is a 21-year-old woman with a history of morbid obesi ty as well as panic disorder, depression, anxiety and borderline personality disorder by her own rep ort who presented to the emergency department last night with focal neurologic symptoms. She report s that she was cleaning her house when around 9 o'clock she had the onset of right hand numbness, wh ich traveled up her arm and into her face and then down the right side of her body. She then began having difficulty with her speech, which at first her mother describes as being as though her tongue was thick when she was talking with her on the phone. She had some difficulty with coordination wh en trying to text with her right hand on her phone and also some balance difficulties when trying to walk down the stairs, though she ascribes that more to blurry vision on top of the left eye visual loss that she has been experiencing and which is further described below. Once her mother arrived at her apartment, she had some expressive aphasia where she was putting the wrong words in the wrong p laces. For example, her mother states that she asked her what she had to eat that day and the katy nt replied "I had a piece of yogurt." These symptoms lasted approximately an [id number]-half and by the time she arrived here in the emergency department they were nearly resolved, but then she devel oped a left-sided headache, which was piercing and pulsating in nature. She had significant photoph obia with this. She received Percocet and some ibuprofen and Tylenol, which have helped to dull the headache but has not completely resolved at this point. She rates that a 2/10 currently. She has experienced other headaches in the past which are somewhat similar, in that they have been left-side d and pulsating in nature. These previous headaches have also been associated with some visual castellanos ges, which she describes as pin holes or bright spots in her vision but she believes these changes o ccurred with the headache rather than before. She feels back to baseline today in terms of her righ t-sided function. Separately, she has been experiencing a little over a week's worth of vision changes in her left eye . She was initially assessed at her primary care's office by a nurse practitioner who sent her to Refugio Verduzco's office. In the context of this, she has had about 2 weeks of headache as well, which has been less severe than the headache that she experienced yesterday. She was told at Dr. Verduzco's off ice that both her optic nerves were swollen, worse on the left and her visual field testing was appa rently abnormal in that eye as well. She was planned for an MRI scan as an outpatient on Wednesday it sounds like the diagnosis of idiopathic intracranial hypertension was being considered in the s etting of this constellation of findings. She reports some tinnitus on the left side, which is long standing but has been more pronounced with these headaches recently. She denies any transient visua l obscurations when doing a Valsalva maneuver or bending over or coughing or sneezing. She does say that she had some eye pain with eye movements in the context of this left eye visual problem as wel l. PAST MEDICAL HISTORY: 1. Anxiety. 2. Depression. 3. Panic disorder. 4. Borderline personality disorder. 5. Migraine headache. HOME MEDICATIONS: 1. Oral contraceptive. 2. Lorazepam 0.5 mg p.r.n. anxiety. The patient reports she has used approximately 3 of these in t he past 2 months. 3. She is also planning on restarting Lexapro soon but is not currently on any antidepressants. FAMILY HISTORY: There is a history of migraine in the paternal grandmother. There is also a family history of stroke. SOCIAL HISTORY: She denies tobacco use or illicit drug use. She drinks alcohol occasionally. She is currently unemployed secondary to her mental health. She lives with a roommate. REVIEW OF SYSTEMS: As per the HPI, otherwise negative. PHYSICAL EXAM: Vital Signs: Temperature 97.8, blood pressure 139/97, heart rate 113, oxygen satura tion 99% on room air. I note that she has been tachycardic into the one teens since she has been he re and she does say her anxiety has been flaring during this hospitalization. On general examination, she is a pleasant, morbidly obese woman sitting at the edge of her bed. Hea rt is in a regular rate and rhythm. Lungs are clear to auscultation bilaterally. On neurologic exa mination, she is fully awake, alert and oriented. There is no dysarthria or aphasia. On cranial ne rve testing, pupils are equal at 3-mm and briskly reactive on the right to 2 mm but there was some h ippus on the left and the pupil was not as briskly reactive only to approximately 2.5 mm. There was not a clear relative afferent pupillary defect noted. With the right eye covered, the patient repor sundar that she was not able to see the examiner's eyes and at times a portion of my forehead. Her per ipheral solano were fully intact both monocularly and binocularly. Versions are full without nystag mus. There is no diplopia. Facial sensation and musculature are full and symmetric. Hearing is in tact to voice. The palata elevates symmetrically and tongue is midline. On motor examination, ther e is normal bulk and tone in the upper and lower extremities though she has some difficulty relaxing her lower extremities. Strength is full proximally and distally with no pronator drift. Sensation is intact to light touch and pinprick in the upper and lower extremities. Reflexes are 2+ in the u pper extremities and at the knees. There is some nonsustained clonus in the ankles bilaterally. To es are downgoing bilaterally. [id number] is without ataxia. Romberg is negative. Her gait is n arrow-based and stable. DIAGNOSTIC STUDIES/LAB DATA: CBC notable for an elevated white blood cell count of 11, which is onl y slightly above normal, ESR is normal at 13, CMP was unremarkable, CRP was slightly elevated at 12. 47. Urinalysis showed 1+ ketones, 2+ leukocyte esterase, 1+ white blood cells, 1+ rbc's, 1+ bacteri a and squamous epithelial cells are present. Coagulation studies were normal. Noncontrast brain CT was personally reviewed and was a normal study. CT venogram was obtained this morning after I discussed the case with Dr. Cancino. This study is pendin g formal radiology reading but on my review, I did not see any obvious thrombosis in the venous sinu ses. IMPRESSION: Molly Simon is a 21-year-old woman with morbid obesity who presented to the [facility] because of focal neurologic deficits involving aphasia and right-sided numbness as well as incoo rdination followed by a left-sided headache. She has a previous history of migraine headaches and I think this episode was most likely a migraine with a complicated aura. It is not clearly a hemiple gic migraine, however. I discussed with her that as an outpatient she should try nonsteroidal anti- inflammatories such as ibuprofen, naproxen or Excedrin Migraine should this happen again. If those failed to sufficiently relieve her pain, she would be able to trial triptans as well, though with so me caution, given this complicated aura that she experienced. Aside from this, I think that her presentation of more persistent daily headaches in the setting of vision loss in the left eye is concerning for idiopathic intracranial hypertension. She does not cl early have a relative afferent pupillary defect on the left, but she does have some pupillary abnorm ality there. Optic neuritis would also be within the differential given her description of pain wit h eye movement as well as her age. I discussed my recommendation for a lumbar puncture at this time with the patient. She is quite anxious about this but eventually did agree and I discussed with Dr Rd Cancino that we will need to give her some IV medication in the form of benzodiazepines to hopefully help her tolerate this. We should obtain proper opening pressure with the patient in the left later al decubitus position with her legs extended. In addition, I will put in orders for additional stud ies including the typical studies such as cell counts, protein and glucose, as well as oligoclonal b ands given the possibility of optic neuritis here. Otherwise, she can follow up as an outpatient fo r the MRI that is already planned. If her lumbar puncture is consistent with idiopathic intracrania l hypertension with an opening pressure of greater than 30, then draining her to a pressure of less than or equal to 20 will be recommended. In addition, she could be be started on Diamox for symptom atic relief. I also explained to the patient that if she has idiopathic intracranial hypertension, then weight loss is recommended and she indicated that she was planning on starting a diet yesterday . Thank you for this consultation. [id number]/[facility] #: [id number]
[2017-03-20 15:52] LABS: CSF Glucose 56 mg/dL (40-70)
[2017-03-20 15:57] LABS: Body Fluid Appearance Clear
[2017-03-20 15:59] LABS: BF RBC Count #1 1
[2017-03-20 16:01] LABS: BF RBC Count #2 1; BF WBC Count #1 11
[2017-03-20 16:02] LABS: BF WBC Count #2 12; RBC counts within 6%? Yes; WBC counts within 15%? Yes
[2017-03-20 16:11] LABS: Body Fluid Total Cells Counted 14; Body Fluid WBC 12 /mcL
--- NOTE | 2017-03-20 16:52 | PN ---
Progress Note - Progress Note Date of Service: 03/20/17 Note: Anesthesia. I was asked to do LP on the patient for possible increase ICP. The patient is morbidly obese, with a history of anxiety/panic attacks. The chart was reviewed. She is alert, RRR, no wheezes, poor landmarks on back with several skin folds. The patient agreed to LP, she was made aware of risks and alternatives, all questions were answered, no promises made. Pt was in lateral position, clean with chlorhexidine, then sterile prep with chloroprep. US was used to help locate midline, difficult LP, on 5th or 6th attempt, 22 guage to SAS with clear CSF. Opening pressure 35. Approximately 20-25 ml removed to get closing pressure to 16. Sample to lab. Total 17 mg Versed and 100ug Fentanyl for procedure. Patient was talking the entire time. This patient was very difficult to do the LP. If she needs further LPs, I strongly suggest she be referred to a tertiary medical center. I discussed results with Dr Cancino.
[2017-03-20] MEDS: oxyCODONE/Acetamin 5/325 MG* TAB PO PRN (20:40)
[2017-03-20] MEDS: acetaZOLAMIDE TAB* 250 MG PO SCH (20:41)
[2017-03-21] MEDS: oxyCODONE/Acetamin 5/325 MG* TAB PO PRN (03:38)
[2017-03-21] MEDS: Aspirin EC Low Dose* 81 MG TAB.EC PO SCH (09:08)
[2017-03-21] MEDS: acetaZOLAMIDE TAB* 250 MG PO SCH ×2 (09:08→20:49)
--- NOTE | 2017-03-21 12:42 | PN ---
Subjective Date of Service: 03/21/17 Interval History: pt feels much better today, no headache, vision in left eye improved Objective Active Medications: Acetaminophen (Tylenol Tab*) 650 mg PO Q6H PRN PRN Reason: FEVER/PAIN Last Admin: 03/20/17 15:41 Dose: 650 mg Acetazolamide (Diamox Tab*) 250 mg PO BID [facility] Last Admin: 03/21/17 09:08 Dose: 250 mg Aspirin (Aspirin Ec Low Dose*) 81 mg PO DAILY [facility] Last Admin: 03/21/17 09:08 Dose: 81 mg Oxycodone/Acetaminophen (Percocet 5/325 Tab*) 1 tab PO Q4H PRN PRN Reason: PAIN Last Admin: 03/21/17 03:38 Dose: 1 tab Vital Signs 03/20/17 03/20/17 03/20/17 15:35 15:52 19:26 Temperature 97.7 F 98.2 F 98.6 F Pulse Rate 103 100 98 Respiratory 18 16 20 Rate Blood Pressure 116/63 114/60 149/66 (mmHg) O2 Sat by Pulse 99 99 95 Oximetry 03/20/17 03/20/17 03/20/17 20:00 20:40 22:40 Temperature Pulse Rate Respiratory 18 18 20 Rate Blood Pressure (mmHg) O2 Sat by Pulse Oximetry 03/20/17 03/21/17 03/21/17 23:39 03:21 03:38 Temperature 98.6 F 98.6 F Pulse Rate 100 98 Respiratory 22 18 20 Rate Blood Pressure 146/90 134/78 (mmHg) O2 Sat by Pulse 97 97 Oximetry 03/21/17 03/21/17 03/21/17 05:38 07:20 08:00 Temperature 98.6 F Pulse Rate 109 Respiratory 18 16 16 Rate Blood Pressure 147/90 (mmHg) O2 Sat by Pulse 96 Oximetry Oxygen Devices in Use Now: None Appearance: 21 yo f in nAD, aAOx3 Eyes: No Scleral Icterus, PERRLA Ears/Nose/Mouth/Throat: NL Teeth, Lips, Gums, Mucous Membranes Moist Neck: NL Appearance and Movements; NL JVP Respiratory: Symmetrical Chest Expansion and Respiratory Effort, Clear to Auscultation Cardiovascular: NL Sounds; No Murmurs; No JVD, RRR Abdominal: NL Sounds; No Tenderness; No Distention Lymphatic: No Cervical Adenopathy Extremities: No Edema Skin: No Nodules or Sclerosis Neurological: Alert and Oriented x 3, NL Muscle Strength and Tone Result Diagrams: 03/20/17 02:51 03/20/17 02:51 Additional Lab and Data: Lab Results 03/20/17 03/20/17 03/20/17 Range/Units 02:51 02:51 02:51 WBC 11.0 H (3.5-10.8) 10^3/ul RBC 5.04 (4.0-5.4) 10^6/ul Hgb 14.7 (12.0-16.0) g/dl Hct 43 (35-47) % MCV 86 (80-97) fL MCH 29 (27-31) pg MCHC 34 (31-36) g/dl RDW 13 (10.5-15) % Plt Count 356 (150-450) 10^3/ul MPV 8 (7.4-10.4) um3 Neut % (Auto) 68.8 (38-83) % Lymph % (Auto) 24.6 L (25-47) % Mcleod % (Auto) 5.9 (1-9) % Eos % (Auto) 0.4 (0-6) % Baso % (Auto) 0.3 (0-2) % Absolute Neuts (auto) 7.5 (1.5-7.7) 10^3/ul Absolute Lymphs (auto) 2.7 (1.0-4.8) 10^3/ul Absolute Monos (auto) 0.6 (0-0.8) 10^3/ul Absolute Eos (auto) 0 (0-0.6) 10^3/ul Absolute Basos (auto) 0 (0-0.2) 10^3/ul Absolute Nucleated RBC 0.01 10^3/ul Nucleated RBC % 0.1 ESR 13 (0-14) mm/Hr INR (Anticoag Therapy) 0.99 (0.89-1.11) APTT 27.4 (26.0-36.3) seconds Sodium 136 (133-145) mmol/L Potassium 3.5 (3.5-5.0) mmol/L Chloride 103 (101-111) mmol/L Carbon Dioxide 24 (22-32) mmol/L Anion Gap 9 (2-11) mmol/L BUN 10 (6-24) mg/dL Creatinine 0.70 (0.51-0.95) mg/dL Est GFR ( Amer) 134.6 (>60) Est GFR (Non-Af Amer) 104.6 (>60) BUN/Creatinine Ratio 14.3 (8-20) Glucose 89 (70-100) mg/dL Lactic Acid (0.5-2.0) mmol/L Calcium 9.6 (8.6-10.3) mg/dL Total Bilirubin 0.40 (0.2-1.0) mg/dL AST 10 L (13-39) U/L ALT 11 (7-52) U/L Alkaline Phosphatase 61 (34-104) U/L Troponin I 0.00 (<0.04) ng/mL C-Reactive Protein 12.47 H (< 5.00) mg/L Total Protein 7.2 (6.4-8.9) g/dL Albumin 3.8 (3.2-5.2) g/dL Globulin 3.4 (2-4) g/dL Albumin/Globulin Ratio 1.1 (1-3) Triglycerides 111 mg/dL Cholesterol 243 mg/dL LDL Cholesterol 156 mg/dL HDL Cholesterol 64.8 mg/dL Beta HCG, Quant < 0.60 mIU/mL Urine Color Urine Appearance Urine pH (5-9) Ur Specific Hayward (1.010-1.030) Urine Protein (Negative) Urine Ketones (Negative) Urine Blood (Negative) Urine Nitrate (Negative) Urine Bilirubin (Negative) Urine Urobilinogen (Negative) Ur Leukocyte Esterase (Negative) Urine WBC (Auto) (Absent) Urine RBC (Auto) (Absent) Ur Squamous Epith Cells (Absent) Urine Bacteria (Absent) Urine Glucose (Negative) 03/20/17 03/20/17 Range/Units 02:51 02:51 WBC (3.5-10.8) 10^3/ul RBC (4.0-5.4) 10^6/ul Hgb (12.0-16.0) g/dl Hct (35-47) % MCV (80-97) fL MCH (27-31) pg MCHC (31-36) g/dl RDW (10.5-15) % Plt Count (150-450) 10^3/ul MPV (7.4-10.4) um3 Neut % (Auto) (38-83) % Lymph % (Auto) (25-47) % Mcleod % (Auto) (1-9) % Eos % (Auto) (0-6) % Baso % (Auto) (0-2) % Absolute Neuts (auto) (1.5-7.7) 10^3/ul Absolute Lymphs (auto) (1.0-4.8) 10^3/ul Absolute Monos (auto) (0-0.8) 10^3/ul Absolute Eos (auto) (0-0.6) 10^3/ul Absolute Basos (auto) (0-0.2) 10^3/ul Absolute Nucleated RBC 10^3/ul Nucleated RBC % ESR (0-14) mm/Hr INR (Anticoag Therapy) (0.89-1.11) APTT (26.0-36.3) seconds Sodium (133-145) mmol/L Potassium (3.5-5.0) mmol/L Chloride (101-111) mmol/L Carbon Dioxide (22-32) mmol/L Anion Gap (2-11) mmol/L BUN (6-24) mg/dL Creatinine (0.51-0.95) mg/dL Est GFR ( Amer) (>60) Est GFR (Non-Af Amer) (>60) BUN/Creatinine Ratio (8-20) Glucose (70-100) mg/dL Lactic Acid 1.5 (0.5-2.0) mmol/L Calcium (8.6-10.3) mg/dL Total Bilirubin (0.2-1.0) mg/dL AST (13-39) U/L ALT (7-52) U/L Alkaline Phosphatase (34-104) U/L Troponin I (<0.04) ng/mL C-Reactive Protein (< 5.00) mg/L Total Protein (6.4-8.9) g/dL Albumin (3.2-5.2) g/dL Globulin (2-4) g/dL Albumin/Globulin Ratio (1-3) Triglycerides mg/dL Cholesterol mg/dL LDL Cholesterol mg/dL HDL Cholesterol mg/dL Beta HCG, Quant mIU/mL Urine Color Yellow Urine Appearance Cloudy Urine pH 5.0 (5-9) Ur Specific Hayward 1.026 (1.010-1.030) Urine Protein Negative (Negative) Urine Ketones 1+ H (Negative) Urine Blood Negative (Negative) Urine Nitrate Negative (Negative) Urine Bilirubin Negative (Negative) Urine Urobilinogen Negative (Negative) Ur Leukocyte Esterase 2+ H (Negative) Urine WBC (Auto) 1+(6-10/hpf) H (Absent) Urine RBC (Auto) 1+(3-5/hpf) H (Absent) Ur Squamous Epith Cells Present H (Absent) Urine Bacteria 1+ H (Absent) Urine Glucose Negative (Negative) Microbiology and Other Data: Microbiology 03/20/17 15:08 CSF Gram Stain (Tube 3) - Final Cerebral Spinal Fluid CSF Culture - Preliminary No Growth Day 1 Assess/Plan/Problems-Billing Assessment: 21 yo F with h/o of obesity, on BCP presents with headache and visual changes + left arm numbness that resolved - Patient Problems (1) Visual field defect Comment: assiociated with possible optic disc edema and headache as well as transient left arm numbness. Spinal tap yielded 35 of opening pressure and CSF fluid had 12 WBC. For working dx of pseudotumor cerebri pt was placed on Diamox and her symptoms improved. CTV brain showed abn left transverse sinus vs clot.D/w Dr. Trinh who recommended MRI/MRV- pt need to wait for till tomorrow. for now cont ASA and neurochecks (2) DVT prophylaxis Comment: ambulation Status and Disposition: OBV
[2017-03-21] MEDS: Acetaminophen TAB* 325 MG PO PRN (16:02)
--- NOTE | 2017-03-22 02:43 | PN ---
PROGRESS NOTE: DATE OF FOLLOWUP: 03/21/17 OVERNIGHT EVENTS: No acute overnight events. The patient underwent lumbar puncture yesterday afternoon, which was difficult for Dr. Do to perform, but he was successful. Her opening pressure was 35 cm of water in the left lateral decubitus position and he drained fluid to a closing pressure approximately 16 according to his note. She was given a significant amount of Versed (17mg) as well as Fentanyl and was still talking through the procedure though today she says she does not recall anything about it until the end. She noted to Dr. Cancino yesterday and to me this morning that her blind spot is reduced. She has no headache. The CT venogram was read by Dr. Boothe as concerning for possibly occlusion versus congenital absence of the left transverse sinus. After the LP results yesterday, the patient was started on acetazolamide 250 mg twice daily. MEDICATIONS: 1. Tylenol 650 q.6 hours p.r.n. pain. 2. Diamox 250 mg twice daily. 3. Aspirin 81 mg daily. 4. Percocet 15/325 mg 1 tablet q.4 hours p.r.n. pain, was given at 3:30 this morning. PHYSICAL EXAMINATION: Vital Signs: Temperature 98.6, blood pressure 147/90, heart rate 86, oxygen saturation 96% on room air. A complete exam was not repeated this morning. The patient was in no acute distress and denied any pain. She was lying comfortably in bed. When she occluded her right eye, she reported being able to see one of the examiner's eyes where as yesterday she was not able to see either; one of the examiner's eyes was still missing. Her versions are full without diplopia or nystagmus. DIAGNOSTIC STUDIES/LABORATORY DATA: Spinal fluid is notable for white blood cells of 12 with only 1 RBC seen in tube 3. These are lymphocytes. Her glucose is normal at 56, but the protein was slightly elevated at 48. Oligoclonal bands and IgG are pending on the CSF. CT venogram report as mentioned indicates that the left transverse sinus is either occluded by thrombus or congenitally absent/diminutive relative to the right side. The remaining sinuses are patent and there is dominance of the right internal jugular vein. Furthermore, the CTA portion of this study findings indicate that the posterior communicating arteries are either diminutive or absent, which can be a normal variant. IMPRESSION: Patience Predmore is 21-year-old woman with morbid obesity, who presented to the hospital with focal neurologic symptoms including transient right upper extremity weakness/numbness and incoordination as well as aphasia, which resolved after 60 to 90 minutes and was followed by a left-sided headache. These symptoms have resolved and are thought to be most consistent with migraine with aura. Aside from this, she has also had 2 weeks of left eye vision loss and dull headache, with findings from ophthalmology apparently consistent with papilledema bilaterally, but worse on the left. Lumbar puncture yesterday showed an elevated opening pressure and with drainage of some fluid. She reports improvement in her visual defect today. However, there is some question of whether she has an abnormality in the left transverse sinus. In addition, her spinal fluid is mildly abnormal. I would like to keep her for another night and tomorrow, obtain MRV to hopefully further delineate the anatomy of her venous sinuses. She may just have a congenitally small left transverse sinus or this may be narrowed/stenotic, which can be seen in the setting of IIH. MRI of the brain with and without contrast will also be obtained to look for any signs of demyelinating disease given her reports of left eye visual loss as well as pain with eye movement previously, especially in light of the mildly abnormal spinal fluid. I should note, that another possibility for her headache plus her spinal fluid findings would be the syndrome of transient headache and neurologic deficits with cerebrospinal fluid lymphocytosis, abbreviated HaNDL. [id number]/[facility] #: [id number] MTDD
[2017-03-22] MEDS ORDERED: LORazepam TAB(*) 1 MG PO ONE (07:00)
[2017-03-22 07:50] VITALS: BP 133/89
[2017-03-22] MEDS: Acetaminophen TAB* 325 MG PO PRN (07:53)
[2017-03-22] MEDS: acetaZOLAMIDE TAB* 250 MG PO SCH (07:53)
[2017-03-22] MEDS: Aspirin EC Low Dose* 81 MG TAB.EC PO SCH (07:53)
[2017-03-22] MEDS ORDERED: Gadoteridol* (CONTRAST) 279.3 MG/ML 10 ML IV ONE (10:38)
--- NOTE | 2017-03-22 12:02 | RAD ---
HISTORY: Visual changes, question left transverse sinus thrombosis COMPARISONS: CT dated March 20, 2017 TECHNIQUE: Multiple 3-D phase contrast MR venography was performed, with multiple 3-D maximum intensity projection reconstructions. FINDINGS: VENOUS SINUSES: The venous sinuses are patent. There is no stenosis or occlusion. There is no filling defect to suggest thrombosis. The right transverse-sigmoid system is dominant. The CT findings likely reflect congenital anatomic variant asymmetry of the size of the venous sinuses. DEEP VEINS: The deep veins are patent. The internal cerebral veins are dominant over the basal veins of Matt. OTHER FINDINGS: None IMPRESSION: NO VENOUS SINUS THROMBOSIS OR OCCLUSION
--- NOTE | 2017-03-22 12:10 | RAD ---
HISTORY: Right-sided weakness, left visual changes COMPARISONS: Head CT dated March 20, 2017 TECHNIQUE: The following sequences were obtained of the head: Sagittal T1-weighted images, axial FLAIR images axial T2-weighted images, axial FLAIR images, axial susceptibility weighted images, axial T1-weighted images. Additionally, axial diffusion-weighted images were obtained with calculated apparent diffusion coefficients. Additionally, sagittal, coronal, and axial T1-weighted images were obtained after contrast enhancement with a gadolinium-based intravenous contrast agent. FINDINGS: The study is limited by patient motion artifact. HEMORRHAGE/INFARCT: There is no hemorrhage or acute infarct. MASSES/SHIFT: There is no mass or shift. EXTRA-AXIAL SPACES/MENINGES: There are no extra-axial fluid collections. SULCI AND VENTRICLES: The sulci and ventricles are normal in size and position for the patient's stated age. CEREBRUM: There are few, scattered small foci of elevated T2/FLAIR signal in the periventricular and subcortical white matter. [employer] Member lesions can be seen on axial image 21 and 18. 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 BRAINSTEM: There are no focal parenchymal abnormalities. CEREBELLUM: There are no focal parenchymal abnormalities. The cerebellar tonsils are normal in size and position. SELLA: The sella is normal. PINEAL: The pineal region is clear. CP ANGLE/TEMPORAL BONES: The labyrinthine structures are grossly normal. VESSELS: Normal flow-voids are noted within the visualized vertebral vasculature. DIFFUSION ABNORMALITIES: There are no diffusion abnormalities. PARANASAL SINUSES/MASTOIDS: The paranasal sinuses are clear. ORBITS: The orbits are unremarkable. BONES AND SOFT TISSUE: No bone or soft tissue abnormalities are noted. OTHER: There is no abnormal enhancement. IMPRESSION: THERE ARE FEW, SCATTERED, SMALL FOCI OF ELEVATED T2/FLAIR SIGNAL IN THE PERIVENTRICULAR AND SUBCORTICAL WHITE MATTER. WHILE THE IMAGING APPEARANCE IS NONSPECIFIC, THE DIFFERENTIAL DOES INCLUDE DEMYELINATING PLAQUE IN THE CORRECT CLINICAL SETTING. SIMILAR CHANGES CAN ALSO BE SEEN IN ASSOCIATION WITH MIGRAINE HEADACHE, AND THE SEQUELA OF PREVIOUS INFECTION OR INFLAMMATION. THERE IS NO ASSOCIATED ABNORMAL ENHANCEMENT.
--- NOTE | 2017-03-23 00:37 | DS ---
CC: Dr. Martina Valera; Dr. Trinh * DISCHARGE SUMMARY: DATE OF ADMISSION: 03/20/17 DATE OF DISCHARGE: 03/22/17 PRIMARY CARE PROVIDER: Dr. Martina Valera. DISCHARGE DIAGNOSES: 1. Headache with right-sided numbness, most likely due to atypical migraine. 2. Diagnosed as outpatient with optic disc edema bilaterally as well as an increase in intracranial pressures at 35 with likely diagnosis of pseudotumor cerebri. SECONDARY DIAGNOSES: 1. Obesity with BMI of 55. 2. Depression. MEDICATIONS AT DISCHARGE: Include Diamox 250 mg b.i.d. for 1 week, then increase to 500 mg b.i.d. LABORATORY DATA AND STUDIES DURING THE HOSPITAL STAY: Included: On 03/20/17, white blood cell count of 11.0, hemoglobin 14.7, hematocrit of 43, and platelets of 356. ESR was 13. Sodium was 136, potassium was 3.5, chloride 103 , carbon dioxide 24, BUN 10, creatinine 0.7. Liver function tests unremarkable. Beta hCG below 0.6. C- reactive protein of 12. Urine cultures and CSF cultures were negative. Cerebrospinal fluid analysis showed colorless and clear fluid with 12 wbc's, 1 rbc, 100% lymphocytes, glucose was 56, and protein of 48 in the CSF. Head MRI obtained on 03/22/17 showed impression: "No venous sinus thrombosis or occlusion." Brain MRI with and without contrast on 03/22/17, impression: "There are a few scattered small foci of elevated T2/FLAIR signal in the periventricular and subcortical white matter. While the imaging appearance is nonspecific, the differential does include demyelinating plaque in the correct clinical setting. Similar changes can also be seen in association with migraine headache and as a sequela of previous infection or inflammation. There is no associated abnormal enhancement." Head CTA that was obtained on 03/20/17, impression: "No acute abnormalities on the arterial phase CT angiography of the head. The left transverse sinus is either occluded or has intraluminal thrombus or congenitally absent/smaller relative to the right side. The remaining large dural sinuses appear most portion of the internal jugular vein do not exhibit focal luminal thrombosis." Brain CT obtained on admission, impression: "Normal CT of the brain." CONSULTATIONS DURING THE HOSPITAL STAY: Included Dr. Trinh from Neurology and Dr. Do from Anesthesiology. PROCEDURES OBTAINED DURING THE HOSPITAL STAY: Included, Dr. Do, lumbar puncture performed on 03/20/17. Please also note that Dr. Do stated that it was very difficult to do the LP and if she needs further LP, it was strongly suggested by Dr. Do for the patient to be referred to a tertiary medical center for that procedure. The results of the lumbar puncture of the cerebrospinal fluid are as above. In addition to the above mentioned, the patient's opening pressure was [address] Do mariama approximately 25 mL of CSF to optimize the pressure to the level of 16. At discharge, lab work that is still pending includes CSF cultures, IgG levels, and oligoclonal bands. HOSPITALIZATION COURSE: Molly Simon is a 21-year-old obese female with a BMI of 55 with history of migraine headaches and she presented to the hospital complaining of headaches and right-sided numbness. The headaches still continued to persist throughout the initial hospital day with right-sided numbness, lasted approximately 90 minutes and resolved by the time of admission. In addition to that, the patient stated that together with the headache that had been going on for a couple of weeks, she started having left-sided visual deficit for which she was seen by Dr. Verduzco. It was noted that the patient has swelling of the optic disc and Dr. Verduzco scheduled the patient for outpatient MRI of the brain. Nevertheless, the patient started developing symptoms as mentioned above and presented to the hospital. After the initial 24 hours of the hospitalization, the patient's headache almost resolved. Due to her history of headache and edema of the optic disc, the likely diagnosis was pseudotumor cerebri. To prove it, Dr. Do performed lumbar puncture procedure, which did show increased intracranial pressures. After the procedure was performed and the fluid was drained, the patient felt much better with headache that resolved and markedly improved vision in the left eye. Later on, a CT angiogram of the head, the venous portion showed possibility of cavernous sinus problem and that was clarified by the MRA of the brain that showed no abnormalities as mentioned above. The patient's MRI of the brain also was basically unremarkable apart from small areas as mentioned above that were not enhancing and most likely present due to history of migraine headaches. By the time of discharge, the patient has minimal vision deficit in the left eye. She is going to be continued on Diamox as recommended by Dr. Trinh. She is to see the neurologist in approximately 8 weeks. The patient also is to follow up with her primary care provider. PHYSICAL EXAMINATION: At the time of discharge, blood pressure of 133/89, heart rate of 95 and regular, respiratory rate 20, oxygen saturation 98% on room air, temperature 98.5. General: The patient is a very pleasant 21-year- old female who is not in acute distress. Alert, awake, and oriented x3. HEENT : Head: Atraumatic, normocephalic. Eyes: Pupils are equal, reactive to light and accommodation. Oropharynx is clear. Mucosa moist. Neck: Supple. No JVD. No bruits bilaterally. Cardiovascular: Regular rate and rhythm. No murmur. Respiratory: Clear to auscultation bilaterally. Abdomen: Soft, nontender. Bowel sounds are present in all 4 quadrants. Extremities: There is no edema. Pulses are +2 bilaterally. No clubbing or cyanosis. Neuro Evaluation: Speech clear. Cranial nerves II through XII grossly intact. Motor strength is 5/5 bilaterally. The patient still has slight vision deficit peripherally when using the left eye. Please note that this is a very short summary of the patient's hospitalization. Please refer to further medical records for details. TIME SPENT: Approximately 45 minutes was spent on the patient's discharge. [id number]/[facility] #: [id number] [facility] INSANERefugio
[2017-03-23 14:11] LABS: CSF Albumin 19.1 mg/dL (<=27.0); CSF IgG/Albumin Ratio 0.36 (<=0.21); CSF Immunoglobulin G Index 1.2 (<=0.85); CSF Immunoglobulin G Synthesis 20.31 mg/24 h (<=12); Serum IgG/Albumin Ratio 0.3 (<=0.40)
== END 2017-03-22 16:34 | disposition home or self-care (01) ==
LOC: ED 22:11 → MEDTELE 03-20 04:59
PROVIDERS: ADMIT Hospitalist; ATTEND Internal Medicine
DX: G43.809 Other migraine, not intractable, without status migrainosus (principal); R20.0 Anesthesia of skin; H47.11 Papilledema associated with increased intracranial pressure; G93.2 Benign intracranial hypertension; R51 Headache; H53.8 Other visual disturbances; R47.81 Slurred speech; R27.8 Other lack of coordination; R41.0 Disorientation, unspecified; R00.0 Tachycardia, unspecified; H46.9 Unspecified optic neuritis; F32.9 Major depressive disorder, single episode, unspecified; F41.8 Other specified anxiety disorders; E66.9 Obesity, unspecified; Z68.43 Body mass index [BMI] 50.0-59.9, adult
CPT/HCPCS: 36415; 62270; 70450; 70496; 70544; 70553; 80053; 80061; 81003; 81015; 82784; 82945; 83605; 83916; 84157; 84484; 84702; 85025; 85610; 85652; 85730; 86140; 87070; 87086; 87205; 89051; 93005; 94760; 99285; A9270-GY; A9579; G0378; J2250; J3010; Q9967

== ENCOUNTER 2017-05-03 17:14 | Emergency (ER) | payer OTHER ==
[2017-05-03] MEDS ORDERED: NS 0.9% 1000 ML* 2,000 ML IV ONE (17:35)
[2017-05-03] MEDS ORDERED: Morphine INJ* 4 MG/ML 1 ML CARPUJECT IV ONE (17:35)
[2017-05-03 18:04] LABS: Hematocrit 47 % (35-47); Hemoglobin 15.4 g/dl (12.0-16.0); Mean Corpuscular HGB Conc 33 g/dl (31-36); Mean Corpuscular Hemoglobin 29 pg (27-31); Mean Corpuscular Volume 88 fL (80-97); Mean Platelet Volume 8 um3 (7.4-10.4); Red Blood Count 5.29 10^6/ul (4.0-5.4); Red Cell Distribution Width 14 % (10.5-15); White Blood Count 12.1 10^3/ul (3.5-10.8)
[2017-05-03 18:20] LABS: ALT 19 U/L (7-52); AST 14 U/L (13-39); Alkaline Phosphatase 85 U/L (34-104); Blood Urea Nitrogen 15 mg/dL (6-24); C Reactive Protein 2.05 mg/L (< 5.00); CO2 Carbon Dioxide 19 mmol/L (22-32); Calcium 9.2 mg/dL (8.6-10.3); EGFR African American 103.3 (>60); EGFR Non-African American 80.4 (>60); Globulin 3.2 g/dL (2-4); Glucose 124 mg/dL (70-100); Lipase < 10 U/L (11.0-82.0); Potassium 3.3 mmol/L (3.5-5.0); Sodium 139 mmol/L (133-145); Total Protein 7.2 g/dL (6.4-8.9)
[2017-05-03 18:24] LABS: Anion Gap 8 mmol/L (2-11); Chloride 112 mmol/L (101-111)
--- NOTE | 2017-05-03 18:47 | ED ---
Max Hensley Benjamin, scribed for Serjio Espinosa MD on 05/03/17 at 1748 . Abdominal Pain/Female - HPI Summary HPI Summary: 21yo female c/o sudden onset of intense RLQ and right flank pain since this afternoon. Pt received morphine GEOMAGNETICIAN via EMS, which helped with pain but states that morphine is wearing off now. Pain is present constantly, but randomly spikes. No vaginal discharge, no prior abdominal surgeries or hx of kidney stones. No concerns for STI. LMP was almost a month ago. Pt states having similar pain about a month ago that subsided on its own. - History of Current Complaint Chief Complaint: Madeline Stated Complaint: ABD PAIN Time Seen by Provider: 05/03/17 17:29 Hx Obtained From: Patient, Family/Direct Support Specialist - mother Hx Last Menstrual Period: BEGINNING APRIL ?: No Onset/Duration: Sudden Onset, Lasting Hours, Still Present Timing: Constant Severity Initially: Moderate Severity Currently: Moderate Pain Intensity: 8 Pain Scale Used: 0-10 Numeric Location: Discrete At: RLQ Radiates: Yes Radiates to: Flank - right Character: Sharp, Cramping Aggravating Factor(s): Nothing Alleviating Factor(s): Nothing Associated Signs and Symptoms: Negative: Urinary Symptoms, Decreased Appetite, Vaginal Bleeding, Vaginal Discharge Allergies/Adverse Reactions: Allergies Allergy/AdvReac Type Severity Reaction Status Date / Time No Known Allergies Allergy Verified 03/19/17 09:41 PMH/Surg Hx/FS Hx/Imm Hx Endocrine/Hematology History: Denies: Hx Diabetes Cardiovascular History: Denies: Hx Hypertension - BLOOD PRESSURE HAS BEEN ELEVATED WITH SYMPTS - NO MEDS, Hx Pacemaker/ICD Respiratory History: Denies: Hx Asthma History: Denies: Hx Renal Disease Sensory History: Reports: Hx Contacts or Glasses Denies: Hx Hearing Aid Opthamlomology History: Reports: Hx Contacts or Glasses Neurological History: Comment Only: 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 Psychiatric History: Reports: Hx Depression Denies: Hx Panic Disorder - Surgical History Surgery Procedure, Year, and Place: BI-LATERAL FEET SURGERY TO REMOVE BONE; WISDOM TEETH Infectious Disease History: Yes Infectious Disease History: Denies: Traveled Outside the [place] in Last 30 Days - Family History Known Family History: Positive: Cardiac Disease, Other - CVA - Social History Alcohol Use: None Hx Substance Use: No Substance Use Type: Reports: None Hx Tobacco Use: No Smoking Status (MU): Never Smoked Tobacco Review of Systems Constitutional: Negative Eyes: Negative ENT: Negative Cardiovascular: Negative Respiratory: Negative Positive: Abdominal Pain - RLQ Positive: flank pain - right Musculoskeletal: Negative Skin: Negative Neurological: Negative Psychological: Normal All Other Systems Reviewed And Are Negative: Yes Physical Exam Triage Information Reviewed: Yes Vital Signs On Initial Exam: Initial Vitals Temp Pulse Resp BP Pulse Ox 97.9 F 63 22 156/73 100 05/03/17 17:19 05/03/17 17:19 05/03/17 17:19 05/03/17 17:19 05/03/17 17:19 Vital Signs Reviewed: Yes Appearance: Positive: Well-Appearing, Well-Nourished, Pain Distress - moderate Skin: Positive: Warm, Skin Color Reflects Adequate Perfusion, Dry Head/Face: Positive: Normal Head/Face Inspection Eyes: Positive: Normal ENT: Positive: Normal ENT inspection Neck: Positive: Supple, Nontender Respiratory/Lung Sounds: Positive: Clear to Auscultation, Decreased Breath Sounds Cardiovascular: Positive: RRR, Pulses are Symmetrical in both Upper and Lower Extremities Abdomen Description: Positive: Soft, Other: - right flank tenderness. Negative : Nontender - RLQ tenderness Bowel Sounds: Positive: Hypoactive Musculoskeletal: Positive: Strength/ROM Intact Neurological: Positive: Sensory/Motor Intact, Alert, Oriented to Person Place, Time Psychiatric: Positive: Affect/Mood Appropriate Diagnostics - Vital Signs Vital Signs Temp Pulse Resp BP Pulse Ox 05/03/17 17:19 97.9 F 63 22 156/73 100 - Laboratory Lab Results: Lab Results 05/03/17 05/03/17 05/03/17 Range/Units 17:53 17:53 17:53 WBC 12.1 H (3.5-10.8) 10^3/ul RBC 5.29 (4.0-5.4) 10^6/ul Hgb 15.4 (12.0-16.0) g/dl Hct 47 (35-47) % MCV 88 (80-97) fL MCH 29 (27-31) pg MCHC 33 (31-36) g/dl RDW 14 (10.5-15) % Plt Count 327 (150-450) 10^3/ul MPV 8 (7.4-10.4) um3 Neut % (Auto) 77.3 (38-83) % Lymph % (Auto) 15.2 L (25-47) % Kemper % (Auto) 6.5 (1-9) % Eos % (Auto) 0.5 (0-6) % Baso % (Auto) 0.5 (0-2) % Absolute Neuts (auto) 9.4 H (1.5-7.7) 10^3/ul Absolute Lymphs (auto) 1.8 (1.0-4.8) 10^3/ul Absolute Monos (auto) 0.8 (0-0.8) 10^3/ul Absolute Eos (auto) 0.1 (0-0.6) 10^3/ul Absolute Basos (auto) 0.1 (0-0.2) 10^3/ul Absolute Nucleated RBC 0 10^3/ul Nucleated RBC % 0 APTT 30.7 (26.0-36.3) seconds Sodium 139 (133-145) mmol/L Potassium 3.3 L (3.5-5.0) mmol/L Chloride 112 H (101-111) mmol/L Carbon Dioxide 19 L (22-32) mmol/L Anion Gap 8 (2-11) mmol/L BUN 15 (6-24) mg/dL Creatinine 0.88 (0.51-0.95) mg/dL Est GFR ( Amer) 103.3 (>60) Est GFR (Non-Af Amer) 80.4 (>60) BUN/Creatinine Ratio 17.0 (8-20) Glucose 124 H (70-100) mg/dL Lactic Acid (0.5-2.0) mmol/L Calcium 9.2 (8.6-10.3) mg/dL Total Bilirubin 0.40 (0.2-1.0) mg/dL AST 14 (13-39) U/L ALT 19 (7-52) U/L Alkaline Phosphatase 85 (34-104) U/L C-Reactive Protein 2.05 (< 5.00) mg/L Total Protein 7.2 (6.4-8.9) g/dL Albumin 4.0 (3.2-5.2) g/dL Globulin 3.2 (2-4) g/dL Albumin/Globulin Ratio 1.3 (1-3) Lipase < 10 L (11.0-82.0) U/L Beta HCG, Quant < 0.60 mIU/mL 05/03/17 Range/Units 18:10 WBC (3.5-10.8) 10^3/ul RBC (4.0-5.4) 10^6/ul Hgb (12.0-16.0) g/dl Hct (35-47) % MCV (80-97) fL MCH (27-31) pg MCHC (31-36) g/dl RDW (10.5-15) % Plt Count (150-450) 10^3/ul MPV (7.4-10.4) um3 Neut % (Auto) (38-83) % Lymph % (Auto) (25-47) % Kemper % (Auto) (1-9) % Eos % (Auto) (0-6) % Baso % (Auto) (0-2) % Absolute Neuts (auto) (1.5-7.7) 10^3/ul Absolute Lymphs (auto) (1.0-4.8) 10^3/ul Absolute Monos (auto) (0-0.8) 10^3/ul Absolute Eos (auto) (0-0.6) 10^3/ul Absolute Basos (auto) (0-0.2) 10^3/ul Absolute Nucleated RBC 10^3/ul Nucleated RBC % APTT (26.0-36.3) seconds Sodium (133-145) mmol/L Potassium (3.5-5.0) mmol/L Chloride (101-111) mmol/L Carbon Dioxide (22-32) mmol/L Anion Gap (2-11) mmol/L BUN (6-24) mg/dL Creatinine (0.51-0.95) mg/dL Est GFR ( Amer) (>60) Est GFR (Non-Af Amer) (>60) BUN/Creatinine Ratio (8-20) Glucose (70-100) mg/dL Lactic Acid 1.3 (0.5-2.0) mmol/L Calcium (8.6-10.3) mg/dL Total Bilirubin (0.2-1.0) mg/dL AST (13-39) U/L ALT (7-52) U/L Alkaline Phosphatase (34-104) U/L C-Reactive Protein (< 5.00) mg/L Total Protein (6.4-8.9) g/dL Albumin (3.2-5.2) g/dL Globulin (2-4) g/dL Albumin/Globulin Ratio (1-3) Lipase (11.0-82.0) U/L Beta HCG, Quant mIU/mL Result Diagrams: 05/03/17 17:53 05/03/17 17:53 Lab Statement: Any lab studies that have been ordered have been reviewed, and results considered in the medical decision making process. Abdominal Pain Fem Course/Dx - Course Course Of Treatment: Reviewed pts medication and allergy lists. High Blood pressure noted. CT/DISPOSITION PENDING AT SHIFT CHANGE. - Diagnoses Provider Diagnoses: Right sided abdominal pain, Right flank pain Discharge - Discharge Plan Condition: Stable Disposition: OTHER Discharge Disposition Comment: . Referrals: Martina Valera MD [Primary Care Provider] - The documentation as recorded by the Max sequeira Benjamin accurately reflects the service I personally performed and the decisions made by me, Serjio Espinosa MD.
--- NOTE | 2017-05-03 19:28 | RAD ---
INDICATION: Right flank pain COMPARISON: None TECHNIQUE: Noncontrast axial source images were acquired from the level hemidiaphragms to the symphysis pubis as part of CT imaging for renal stone. Lung bases: The lung bases are clear. Liver: The liver is normal in size. Noncontrast imaging shows no evidence of a hepatic mass or ductal dilatation. Gallbladder: There are no calcified gallstones. There is no evidence of wall thickening or pericholecystic fluid.. Spleen: The spleen is normal in size. The noncontrast CT appearance is normal. Pancreas: Noncontrast imaging shows no pancreatic mass or ductal dilitation. Adrenal glands: No masses are identified. Kidneys/Bladder: There is mild right-sided hydronephrosis and mild right-sided perinephric stranding. There is a 2 mm calculus at the right UVJ. There are no other calcifications of urinary significance. Adenopathy: There is no evidence of intraperitoneal or retroperitoneal adenopathy. Evaluation is limited without oral contrast. Fluid collections: There are no free or localized fluid collections. Vessels: The aorta and iliac vessels are normal in caliber. There are no significant atherosclerotic changes. The IVC appears normal Pelvic organs: The uterus and adnexa appear normal GI tract: Evaluation of the bowel is limited without oral contrast. The stomach, small bowel, and lower GI tract appear grossly normal. There are no obstructive findings. The appendix is visualized and appears normal. Soft tissues: No soft tissue abnormalities of the extraperitoneal abdomen or pelvis are identified. Osseous structures: There are no acute osseous findings. IMPRESSION: 2 MM RIGHT UVJ CALCULUS WITH RESULTANT MILD OBSTRUCTIVE FINDINGS.
[2017-05-03 19:50] LABS: Budding Yeast Present (Absent); Urine Bacteria 1+ (Absent); Urine Bilirubin Negative (Negative); Urine Glucose Negative (Negative); Urine Nitrite Negative (Negative)
[2017-05-03 21:02] VITALS: BP 135/74
[2017-05-03] MEDS ORDERED: Levofloxacin TAB* 500 MG PO ONE (22:08)
[2017-05-03] MEDS ORDERED: Tamsulosin CAP* 0.4 MG PO ONE (22:16)
[2017-05-03] MEDS ORDERED: oxyCODONE/Acetamin 5/325 MG* TAB PO ONE (22:17)
[2017-05-03] MEDS ORDERED: Ibuprofen TAB* 400 MG PO ONE (22:17)
--- NOTE | 2017-05-06 21:05 | ED ---
Marcella Hensley Thomas, scribed for Renato Aguillon on 05/03/17 at 2218 . Progress - Progress Note Progress Note: The patient is a sign out from Dr. Espinosa at shift change pending CT Abd/Pel and awaiting dispositin. CT Abd/Pel shows 2 MM RIGHT UVJ CALCULUS WITH RESULTANT MILD OBSTRUCTIVE FINDINGS. ED physician has reviewed this report and agrees. Patient is stable and will be discharged home with urology follow-up. Course/Dx - Diagnoses Provider Diagnoses: Renal calculi, UTI (urinary tract infection), Flank pain The documentation as recorded by the Marcella sequeira Thomas accurately reflects the service I personally performed and the decisions made by Henna oliver Emmanuel.
== END 2017-05-03 22:30 ==
LOC: ED 17:14
DX: N20.1 Calculus of ureter (principal); F32.9 Major depressive disorder, single episode, unspecified
CPT/HCPCS: 36415; 74176; 80053; 81003; 81015; 83605; 83690; 84702; 85025; 85730; 86140; 87086; 96360; 96374; 99285; A9270-GY; J2270

== ENCOUNTER 2017-08-28 14:33 | Emergency (ER) | payer OTHER ==
[2017-08-28 15:17] VITALS: BP 148/75
--- NOTE | 2017-08-28 15:41 | UC ---
Respiratory Complaint HPI - HPI Summary HPI Summary: Patient presents with complaints of two week onset chest congestion, coughing, w /sputum production and intermittent episodes of wheezing. She states when she is outside in the cold and takes a deep breath in she coughs, and it hurts, she states it petty. She also states she is coughing more at night. She states that the coughing is causing headache. She states she believes she is running a fever , but does not have a thermometer but states at times she feels warm. She denies any neck pain, chest pain with exertion, abdominal pain, nausea, vomiting or diarrhea. - History of Current Complaint Chief Complaint: UCRespiratory Stated Complaint: COUGH,CHEST COLD Time Seen by Provider: 08/28/17 15:28 Hx Obtained From: Patient Hx Last Menstrual Period: February 2017 Onset/Duration: Gradual Onset, Lasting Days Timing: Constant Severity Initially: Mild Severity Currently: Moderate Pain Intensity: 4 Character: Cough: Productive Aggravating Factors: Deep Breaths, Recumbent Position, Other - cold air Alleviating Factors: Upright Position, Spontaneous Resolution Associated Signs And Symptoms: Positive: Negative, URI, Nasal Congestion, Sinus Discomfort - Risk Factors Pulmonary Embolism Risk Factors: Negative Cardiac Risk Factors: Negative Pseudomonas Risk Factors: Negative Tuberculosis Risk Factors: Negative - Allergies/Home Medications Allergies/Adverse Reactions: Allergies Allergy/AdvReac Type Severity Reaction Status Date / Time No Known Allergies Allergy Verified 08/28/17 15:18 PMH/Surg Hx/FS Hx/Imm Hx Neurological History: Migraine, Other Other Neurological History: pseudo tumor cerebri - Surgical History Surgical History: Yes Surgery Procedure, Year, and Place: BI-LATERAL FEET SURGERY TO REMOVE BONE; WISDOM TEETH - Family History Known Family History: Positive: Cardiac Disease, Other - CVA - Social History Lives: Alone Alcohol Use: None Substance Use Type: None Smoking Status (MU): Never Smoked Tobacco Review of Systems Constitutional: Negative Skin: Negative Eyes: Negative ENT: Sinus Congestion Respiratory: Cough Cardiovascular: Negative Gastrointestinal: Negative Genitourinary: Negative Motor: Negative Neurovascular: Negative Musculoskeletal: Negative Neurological: Negative Psychological: Negative Is Patient Immunocompromised?: No All Other Systems Reviewed And Are Negative: Yes Physical Exam Triage Information Reviewed: Yes Appearance: Well-Appearing Vital Signs: Initial Vital Signs Temp 99.0 F 08/28/17 15:14 Pulse 108 08/28/17 15:14 Resp 18 08/28/17 15:14 BP 148/75 08/28/17 15:14 Pulse Ox 99 08/28/17 15:14 Vital Signs Reviewed: Yes Eye Exam: Normal ENT Exam: Normal Neck exam: Normal Neck: Positive: 1 Respiratory Exam: Normal Respiratory: Positive: No respiratory distress, No accessory muscle use, Rhonchi Cardiovascular Exam: Normal Abdominal Exam: Normal Musculoskeletal Exam: Normal Neurological Exam: Normal Psychological Exam: Normal Skin Exam: Normal UC Diagnostic Evaluation - Laboratory O2 Sat by Pulse Oximetry: 99 Respiratory Course/Dx - Course Course Of Treatment: Patient presents with bronchitis, with reproted episodes of wheezing, although none noted on exam. She was well appearing and in no respiratory disgress. Her VSS however her temperature was 99. She was treated with doxycycline, prednisone, and albuterol and told that if her symptoms do not improve she should follow up with the asthma doctor. She verbalized understanding and was in agreement with the discharge plan. - Differential Dx/Diagnosis Differential Diagnosis/HQI/PQRI: Bronchitis Provider Diagnoses: bronchitis Discharge - Discharge Plan Condition: Stable Disposition: HOME Prescriptions: Albuterol HFA INHALER* [Ventolin HFA Inhaler*] 1 - 2 puff INH Q6H PRN #1 mdi PRN Reason: cough/wheezing DOXYcycline CAP(*) [DOXYcycline 100MG CAP(*)] 100 mg PO BID #20 cap predniSONE TAB* [Deltasone TAB*] 20 mg PO BID #10 tab Patient Education Materials: Acute Bronchitis (ED), Wheezing (ED) Referrals: Harsha Long MD [Medical Doctor] - Martina Valera MD [Primary Care Provider] - Additional Instructions: If your symptoms persist you should follow up with the asthma doctor.
== END 2017-08-28 15:44 | disposition home or self-care (01) ==
LOC: UCEAST 14:33
DX: J40 Bronchitis, not specified as acute or chronic (principal)
CPT/HCPCS: 99212; G0463

== ENCOUNTER 2017-12-23 14:21 | Emergency (ER) | payer OTHER ==
[2017-12-23 16:03] VITALS: BP 133/86
--- NOTE | 2017-12-23 16:13 | ED ---
Respiratory - HPI Summary HPI Summary: 22-year-old female presents to sore throat and cough since Wednesday. She states she has not had a normal appetite. She admits to nausea but denies any vomiting. She states she does not have history of asthma but last time she had bronchitis she had some wheezing. She is not a smoker. She has been taking mucinex and Ibuprofen for pain. She admits to a productive cough. She is still able to eat. She was shortness of breath. Her chest feels tight. She denies any chest pain. She denies abdominal pain. She denies any ear pain. She admits occasional headache. She is currently being worked up for MS. - History of Current Complaint Pain Intensity: 7 <Neelam Jama - Last Filed: 12/23/17 16:18> <David Orozco - Last Filed: 12/23/17 19:33> - History of Current Complaint Chief Complaint: UCRespiratory Stated Complaint: SORE THROAT,COUGH Time Seen by Provider: 12/23/17 16:01 - Allergy/Home Medications Allergies/Adverse Reactions: Allergies Allergy/AdvReac Type Severity Reaction Status Date / Time No Known Allergies Allergy Verified 12/23/17 16:03 Home Medications: Home Medications Brexpiprazole (NF) [Rexulti 3 mg tab (NF)] 3 mg PO BEDTIME 12/23/17 [History Confirmed 12/23/17] Prazosin CAP* [Minipress CAP*] 1 mg PO DAILY 12/23/17 [History Confirmed ] PMH/Surg Hx/FS Hx/Imm Hx Endocrine/Hematology History: Denies: Hx Diabetes Cardiovascular History: Denies: Hx Hypertension, Hx Pacemaker/ICD Respiratory History: Denies: Hx Asthma History: Denies: Hx Renal Disease Sensory History: Reports: Hx Contacts or Glasses Denies: Hx Hearing Aid Opthamlomology History: Reports: Hx Contacts or Glasses Neurological History: Comment Only: 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 Psychiatric History: Reports: Hx Depression Denies: Hx Panic Disorder - Surgical History Surgery Procedure, Year, and Place: BI-LATERAL FEET SURGERY TO REMOVE BONE; WISDOM TEETH Infectious Disease History: No Infectious Disease History: Denies: Traveled Outside the [place] in Last 30 Days - Family History Known Family History: Positive: Cardiac Disease, Other - CVA - Social History Alcohol Use: Rare Hx Substance Use: No Substance Use Type: Reports: None Hx Tobacco Use: No Smoking Status (MU): Never Smoked Tobacco <WileyNeelam - Last Filed: 12/23/17 16:18> Review of Systems Positive: Fever Positive: Sore Throat, Nasal Discharge Negative: Chest Pain Positive: Shortness Of Breath, Cough Positive: Nausea. Negative: Abdominal Pain, Vomiting Positive: Headache All Other Systems Reviewed And Are Negative: Yes <Keri Jamabeth - Last Filed: 12/23/17 16:18> Physical Exam Triage Information Reviewed: Yes Vital Signs On Initial Exam: Initial Vitals Temp Pulse Resp BP Pulse Ox 98.1 F 95 20 133/86 98 12/23/17 15:58 12/23/17 15:58 12/23/17 15:58 12/23/17 15:58 12/23/17 15:58 Vital Signs Reviewed: Yes Appearance: Positive: Well-Appearing Skin: Positive: Warm, Dry Head/Face: Positive: Normal Head/Face Inspection Eyes: Positive: Normal, EOMI, BROOKE, Conjunctiva Clear ENT: Positive: Pharynx normal, Nasal congestion Neck: Positive: Supple, Nontender, No Lymphadenopathy Respiratory/Lung Sounds: Positive: Clear to Auscultation, Breath Sounds Present , Other - neg egophony Cardiovascular: Positive: Normal, RRR Abdomen Description: Positive: Nontender, Soft Bowel Sounds: Positive: Present Musculoskeletal: Positive: Normal Neurological: Positive: Normal Psychiatric: Positive: Normal <Keri Jamabeth - Last Filed: 12/23/17 16:18> Vital Signs On Initial Exam: Initial Vitals Temp Pulse Resp BP Pulse Ox 98.1 F 95 20 133/86 98 12/23/17 15:58 12/23/17 15:58 12/23/17 15:58 12/23/17 15:58 12/23/17 15:58 <David Orozco - Last Filed: 12/23/17 19:33> Diagnostics - Vital Signs Vital Signs Temp Pulse Resp BP Pulse Ox 12/23/17 15:58 98.1 F 95 20 133/86 98 <WileyNeelam - Last Filed: 12/23/17 16:18> - Vital Signs Vital Signs Temp Pulse Resp BP Pulse Ox 12/23/17 15:58 98.1 F 95 20 133/86 98 <David Orozco - Last Filed: 12/23/17 19:33> Disposition - Course Course Of Treatment: 22-year-old female presents to sore throat and cough since Wednesday. She states she has not had a normal appetite. She admits to nausea but denies any vomiting. She states she does not have history of asthma but last time she had bronchitis she had some wheezing. She is not a smoker. She has been taking mucinex and Ibuprofen for pain. She admits to a productive cough. She is still able to eat. She was shortness of breath. Her chest feels tight. She denies any chest pain. She denies abdominal pain. She denies any ear pain. She admits occasional headache. She is currently being worked up for MS. on exam lungs clear to auscultation. Negative egophony. Pharynx normal. Sinus congestion present. We'll treat with prednisone and Tessalon. Patient has inhaler at home for shortness of breath. Patient understands agrees plan. - Differential Dx - Cardiopulmonary Differential Diagnoses - Cardiopulmonary: Bronchitis, Influenza, Lower Resp Infection <Neelam Jama - Last Filed: 12/23/17 16:18> <David Orozco - Last Filed: 12/23/17 19:33> - Diagnoses Provider Diagnoses: Upper respiratory infection Discharge - Sign-Out/Discharge Documenting (check all that apply): Discharge/Admit/Transfer - Billing Disposition and Condition Condition: GOOD Disposition: Home <Neelam Jama - Last Filed: 12/23/17 16:18> - Billing Disposition and Condition Condition: GOOD Disposition: Home <David Orozco - Last Filed: 12/23/17 19:33> - Discharge Plan Condition: Good Disposition: HOME Prescriptions: Benzonatate CAP* [Tessalon 100 MG CAP*] 100 mg PO TID PRN #21 cap PRN Reason: Cough predniSONE TAB* [Deltasone TAB*] 50 mg PO DAILY #5 tab Patient Education Materials: Upper Respiratory Infection (ED) Referrals: Martina Valera MD [Primary Care Provider] - Additional Instructions: Use Tessalon three times a day for cough Use inhaler one puff every 4 hours for cough as needed Take steroid once a day for 5 days Use saline in the nose Use humidifier or place warm bowls of water around the room Cough can last up to 4 weeks Follow up with primary care physician in 5 days Return to ED if develop any new or worsening symptoms \ Per institutional requirements, I have reviewed the chart, however, I was not consulted specifically or made aware of this patient by the above midlevel provider. I did not personally evaluate, interact with , or disposition this patient.
== END 2017-12-23 16:21 | disposition home or self-care (01) ==
LOC: UCEAST 14:21
DX: J06.9 Acute upper respiratory infection, unspecified (principal); R51 Headache; G35 Multiple sclerosis; R11.0 Nausea; R06.02 Shortness of breath
CPT/HCPCS: 99212; G0463

== ENCOUNTER 2018-12-13 19:05 | Emergency (ER) | payer OTHER ==
[2018-12-13 19:44] VITALS: BP 139/97
--- NOTE | 2018-12-13 20:45 | UC ---
Back Pain HPI - HPI Summary HPI Summary: 23-year-old female presents with complaints of onset of severe low back pain today. States pain is constant and occasionally radiates down the back of both legs. Reports she has a history of problems with sciatica in the past. She has taken ibuprofen 400 mg once at approximately 2:00 this afternoon with no relief in her symptoms. Denies fever, chills, abdominal pain, nausea, vomiting , dysuria, frequency, urgency, hematuria, numbness, tingling, or weakness of the lower extremities, or loss of bowel or bladder control. - History of Current Complaint Chief Complaint: UCBackPain Stated Complaint: BACK PAIN Time Seen by Provider: 12/13/18 20:41 Hx Obtained From: Patient Hx Last Menstrual Period: 12/08 Pain Intensity: 8 - Allergies/Home Medications Allergies/Adverse Reactions: Allergies Allergy/AdvReac Type Severity Reaction Status Date / Time No Known Allergies Allergy Verified 12/13/18 19:44 PMH/Surg Hx/FS Hx/Imm Hx Previously Healthy: Yes Neurological History: Other - pseudotumor cerbri, MS - Surgical History Surgical History: Yes Surgery Procedure, Year, and Place: BI-LATERAL FEET SURGERY TO REMOVE BONE; WISDOM TEETH - Family History Known Family History: Positive: Cardiac Disease, Other - CVA - Social History Occupation: Unemployed Lives: With Family Alcohol Use: Rare Substance Use Type: None Smoking Status (MU): Never Smoked Tobacco Review of Systems All Other Systems Reviewed And Are Negative: Yes Constitutional: Negative: Fever, Chills Skin: Negative: Rash Respiratory: Positive: Negative Cardiovascular: Positive: Negative Gastrointestinal: Positive: Negative Genitourinary: Negative: Dysuria, Hematuria, Frequency, Urgency Musculoskeletal: Positive: Other: - See HPI Neurological: Positive: Negative Is Patient Immunocompromised?: No Physical Exam - Summary Physical Exam Summary: GENERAL APPEARANCE: Alert and cooperative, obese, young adult female who appears to be uncomfortable trying to find a position of comfort. CARDIAC: Normal S1 and S2. No S3, S4 or murmurs. Rhythm is regular. There is no peripheral edema, cyanosis or pallor. Extremities are warm and well perfused. Capillary refill is less than 2 seconds. Peripheral pulses intact. LUNGS: Clear to auscultation without rales, rhonchi, wheezing or diminished breath sounds. ABDOMEN: Positive bowel sounds. Soft, nondistended, nontender. No guarding or rebound. No masses or hepatosplenomegally. MUSKULOSKELETAL: ROM intact to all extremities. No joint erythema or tenderness. Normal muscular development. Normal gait. BACK: Examination of the spine reveals normal posture, no spinal deformity, bilateral lumbar paraspinous soft tissue tenderness with mild muscle spasm. NEUROLOGICAL: Strength and sensation symmetric and intact to lower extremities. SKIN: Skin normal color, texture and turgor with no lesions or eruptions. Triage Information Reviewed: Yes Vital Signs: Initial Vital Signs Temp 98.4 F 12/13/18 19:39 Pulse 78 12/13/18 19:39 Resp 20 12/13/18 19:39 BP 139/97 12/13/18 19:39 Pulse Ox 100 12/13/18 19:39 Vital Signs Reviewed: Yes Back Pain Course/Dx - Course Course Of Treatment: 23-year-old female presents with complaints of onset of severe low back pain today. States pain is constant and occasionally radiates down the back of both legs. Reports she has a history of problems with sciatica in the past. She has taken ibuprofen 400 mg once at approximately 2:00 this afternoon with no relief in her symptoms. Denies fever, chills, rash, abdominal pain, nausea, vomiting, dysuria, frequency, urgency, hematuria, numbness, tingling, or weakness of the lower extremities, or loss of bowel or bladder control. Afebrile. Vital signs stable. Patient had bilateral lumbar paraspinous soft tissue tenderness with some muscle spasm and otherwise unremarkable exam. She was given ketorolac 30 mg IM and cyclobenzaprine 10 mg PO in the clinic. Given her prescription for naproxen 500 mg 1 tablet every 12 hours to be taken regularly for the next 5 days and then as needed. Also given her a prescription for cyclobenzaprine 10 mg 1 tablet every 8 hours as needed for severe pain or spasm. Recommending conservative treatment for acute low back pain. Patient has an appointment scheduled with her primary care provider in 2 days and was encouraged to keep this appointment for reevaluation. Anticipatory guidance and warning symptoms are reviewed with the patient. Verbalizes understanding and agrees with plan of care. - Differential Dx/Diagnosis Differential Diagnosis/HQI/PQRI: Herniated Disc, Renal Colic, Strain Provider Diagnosis: Acute low back pain Discharge - Sign-Out/Discharge Documenting (check all that apply): Patient Departure All imaging exams completed and their final reports reviewed: No Studies - Discharge Plan Condition: Stable Disposition: HOME Prescriptions: Cyclobenzaprine (NF) [Cyclobenzaprine 5 MG (NF)] 5 mg PO TID PRN #21 tab PRN Reason: Spasms - Back Naproxen [Naproxen 500 mg tab] 500 mg PO Q12HR #30 tablet Patient Education Materials: Acute Low Back Pain (ED) Referrals: Martina Valera MD [Primary Care Provider] - 2 Days (As scheduled.) Additional Instructions: You were given an injection of an anti-inflammatory pain medication called Toradol (ketorolac) 30 mg in the clinic for your pain. Do not take any other anti-inflammatory pain medications such as ibuprofen (Advil, Motrin), naproxen ( Aleve), or aspirin for at least 8 hours after receiving this injection. You were also given a muscle relaxant called Flexeril (cyclobenzaprine) 10 mg to help with any muscle spasm. I have provided you with a prescription for naproxen 500 mg 1 tablet with food every 12 hours to help with the pain. I would like him to take this as prescribed for the next 5 days then you may take every 12 hours as needed. I have also sent a prescription for Flexeril 10 mg 1 tablet every 8 hours as needed for severe pain or spasm. It is important with low back pain to try to remain as active as possible. Avoid strenuous activity or activities that cause severe pain. Try using a band to the effected area for 15-20 minutes at least 4 times a day to help with the pain into relax the muscles. Keep your appointment with your primary care provider as scheduled in 2 days for recheck of her symptoms. Seek immediate medical attention in the emergency room if you have worsening pain despite using pain medication, development numbness or tingling in her lower extremities, are unable to ambulate, or have any worsening of symptoms. - Billing Disposition and Condition Condition: STABLE Disposition: Home - Attestation Statements Provider Attestation: Per institutional requirements, I have reviewed the chart, however, I was not consulted specifically or made aware of this patient by the midlevel provider. I did not personally evaluate, interact with , or disposition this patient.
[2018-12-13] MEDS ORDERED: Cyclobenzaprine TAB* 10 MG PO ONE (20:50)
[2018-12-13] MEDS ORDERED: Ketorolac INJ* 30 MG/ML 1 ML VIAL IM ONE (20:50)
== END 2018-12-13 21:20 | disposition home or self-care (01) ==
LOC: UCEAST 19:05
DX: M54.5 Low back pain (principal); G93.2 Benign intracranial hypertension; G35 Multiple sclerosis
CPT/HCPCS: 96372; 99212; A9270-GY; G0463; J1885

== ENCOUNTER 2019-03-31 11:22 | Emergency (ER) | payer OTHER ==
--- OUTSIDE RECORDS SUMMARY | 2019-03-31 11:51 | XMS REPORT | Continuity of Care Document ---
:1995 External Reference #:[id number] Author Name Bucky Porter M.D. (transmitted by agent of provider Shameka Preston) Address [address] [facility], [place] [address] Care Team Providers Name Role Phone Martina Valera MD - Internal Medicine Care Team Information Channeler Insole Problems Active Problems Provider Date Migraine with typical aura Delaney Trinh MD Onset: 06/01/2017 Benign intracranial hypertension Delaney Trinh MD Onset: 06/01/2017 Abnormal results function studies of central Delaney Trinh MD Onset: 2016 nervous system Optic disc edema Delaney Trinh MD Onset: 06/01/2017 Optic neuritis Delaney Trinh MD Onset: 07/20/2017 Abnormal cytological findings in Delaney Trinh MD Onset: 11/23/2017 cerebrospinal fluid Multiple sclerosis Bucky Porter M.D. Onset: 03/08/2018 Abnormal involuntary movement Bucky Porter M.D. Onset: 03/02/2019 Taking medication Roderick Jean, N.P. Onset: 09/29/2018 Migraine Bucky Porter M.D. Onset: 05/06/2018 Social History Type Date Description Comments Sex Unknown ETOH Use Rarely consumes alcohol Tobacco Use Start: Unknown Patient has never smoked Recreational Drug Use Denies Drug Use Smoking Status Reviewed: 03/02/19 Patient has never smoked Allergies, Adverse Reactions, Alerts Description No Known Drug Allergies Medications Active Medications SIG Qnty Indications Ordering Provider Date Cane/Aluminum/Adjust dispense one 1units G35 Roderick Jean, 12/30/2018 able/Ladies Handle N.P. Misc Aimovig 1 injection 1ml G43.909 Roderick Jean, 12/30/2018 70mg/ml monthly N.P. Solution Auto-Inject Lorazepam take 1 tablet 45 2tabs Roderick Jean, 11/15/2017 1mg Tablets min prior to mri, N.P. may repeat x [address] After Taking Naproxen 600MG prn every 12 hours Unknown for pain Tylenol Extra 1-2 tabs by mouth Unknown Strength every 6 hours as 500mg needed Tablets Mayzent hasnt started this Unknown 0.25mg yet Tablets Immunizations Description No Information Available Vital Signs Date Vital Result Comment 03/02/2019 8:05am Height 63 inches 5'3" Weight 330.00 lb Heart Rate 103 /min BP Systolic 118 mmHg BP Diastolic 82 mmHg BMI (Body Mass Index) 58.5 kg/m2 12/30/2018 2:40pm Height 63 inches 5'3" Weight 330.00 lb Heart Rate 90 /min BP Systolic 144 mmHg BP Diastolic 96 mmHg BMI (Body Mass Index) 58.5 kg/m2 Results Test Date Facility Test Result H/L Range Note CBC Auto 01/03/2019 [facility] White Blood 8.3 10^3/uL Normal 3.5-10.[address] [place] [address] [phone] Red Blood Count 5.24 10^6/uL High 3.70-4.87 Hemoglobin 15.3 g/dL Normal 12.0-16.0 Hematocrit 45 % Normal 35-47 Mean Corpuscular Volume 85 fL Normal 80-97 Mean Corpuscular Hemoglobin 29 pg Normal 27-31 Mean Corpuscular HGB Conc 34 g/dL Normal 31-36 Red Cell Distribution Width 14 % Normal 10-15 Platelet Count 296 10^3/uL Normal 150-450 Mean Platelet Volume 8.5 fL Normal 7.4-10.4 Abs Neutrophils 4.9 10^3/uL Normal 1.5-7.7 Abs Lymphocytes 2.6 10^3/uL Normal 1.0-4.8 Abs Monocytes 0.6 10^3/uL Normal 0-0.8 Abs Eosinophils 0.1 10^3/uL Normal 0-0.6 Abs Basophils 0.1 10^3/uL Normal 0-0.2 Abs Nucleated RBC 0.0 10^3/uL Granulocyte % 59.1 % Lymphocyte % 31.3 % Monocyte % 7.5 % Eosinophil % 1.2 % Basophil % 0.9 % Nucleated Red Blood Cells % 0.1 Comp Metabolic 01/03/2019 [facility] Sodium 139 mmol/L Normal 135-[address] [place] [address] [phone] Potassium 3.9 mmol/L Normal 3.5-5.0 Chloride 109 mmol/L Normal 101-111 Co2 Carbon Dioxide 22 mmol/L Normal 22-32 Anion Gap 8 mmol/L Normal 2-11 Glucose 107 mg/dL High 70-100 Blood Urea Nitrogen 11 mg/dL Normal 6-24 Creatinine 0.75 mg/dL Normal 0.51-0.95 BUN/Creatinine Ratio 14.7 Normal 8-20 Calcium 9.7 mg/dL Normal 8.6-10.3 Total Protein 6.7 g/dL Normal 6.4-8.9 Albumin 4.1 g/dL Normal 3.2-5.2 Globulin 2.6 g/dL Normal 2-4 Albumin/Globulin Ratio 1.6 Normal 1-3 Total Bilirubin 0.50 mg/dL Normal 0.2-1.0 Alkaline Phosphatase 69 U/L Normal 34-104 Alt 28 U/L Normal 7-52 Ast 18 U/L Normal 13-39 Egfr Non- 94.9 >60 Egfr 114.9 >60 1 Laboratory 01/03/2019 [facility] TSH (Thyroid 1.56 Normal 0.34 -5.[address] Stim Horm) mcIU/[place] [address] [phone] Free T4 (Free Thyroxine) 1.03 ng/dL Normal 0.61-1.12 Erythrocyte Sed Rate 2 mm/Hr Normal 0-19 C Reactive Protein 1.73 mg/L Normal <8.01 Copper, Serum 1.13 g/mL 0.75-1.45 2 Ceruloplasmin 27.2 mg/dL 3 Vitamin B12 01/03/2019 [facility] Vitamin B12 229 pg/mL Normal 180-[address] [place] [address] [phone] Folic Acid (Folate) 13.94 ng/mL >3.99 Laboratory test 01/03/2019 [facility] Methylmalonic Acid 0.16 <=0.[address] Mma nmol/[place] [address] [phone] 1 Because ethnic data is not always readily available, this report includes an eGFR for both -Americans and non- Americans. The National Kidney Disease Education Program (NKDEP) does not endorse the use of the MDRD equation for patients that are not between the ages of 18 and 70, are , have extremes of body size, muscle mass, or nutritional status, or are non- or non-. According to the National Kidney Foundation, irrespective of diagnosis, the stage of the disease is based on the level of kidney function: Stage Description GFR(mL/min/1.73 m(2)) 1 Kidney damage with normal or decreased GFR 90 2 Kidney damage with mild decrease in GFR 60-89 3 Moderate decrease in GFR 30-59 4 Severe decrease in GFR 15-29 5 Kidney failure <15 (or dialysis) 2 ADDITIONAL INFORMATION This test was developed and its performance characteristics determined by [facility] in a manner consistent with CLIA requirements. This test has not been cleared or approved by the U.S. Food and Drug Administration. Test Performed by: [facility] [address] [place] [address] 3 REFERENCE VALUE 20.0 - 51.0 Test Performed by: [facility] - [address] [address] 4 Normal Range 180 to 914 Indeterminate Range 145 to 180 Deficient Range <145 5 ADDITIONAL INFORMATION This test was developed and its performance characteristics determined by [facility] in a manner consistent with CLIA requirements. This test has not been cleared or approved by the U.S. Food and Drug Administration. Test Performed by: [facility] - [address] [address] Procedures Description No Information Available Medical Devices Description No Information Available Encounters Type Date Location Provider Dx Diagnosis Office Visit 03/02/2019 [facility] Bucky Porter, G35 Multiple 8:00[facility] [place] sclerosis G43.909 Migraine, unsp, not intractable, without status migrainosus Z79.899 Other terminal manager (current) drug therapy R25.1 Tremor, unspecified Office Visit 12/30/2018 2:30p [facility] Roderick Jean G35 Multiple [facility] N.P. sclerosis G43.909 Migraine, unsp, not intractable, without status migrainosus Z79.899 Other long-term (current) drug therapy R25.1 Tremor, unspecified R53.83 Other fatigue Office Visit 09/29/2018 10:00a [facility] Roderick Jean G35 Multiple [facility] sclerosis G43.909 Migraine, unsp, not intractable, without status migrainosus Z79.899 Other long-term (current) drug therapy Assessments Date Code Description Provider 03/02/2019 G35 Multiple sclerosis Bucky Porter M.D. 03/02/2019 G43.909 Migraine, unspecified, not intractable, Bucky Porter M.D. without status migra 03/02/2019 Z79.899 Other long-term (current) drug therapy Bucky Porter M.D. 03/02/2019 R25.1 Tremor, unspecified Bucky Porter M.D. 12/30/2018 G35 Multiple sclerosis Roderick Jean, N.P. 12/30/2018 G43.909 Migraine, unspecified, not intractable, Roderick Jean, N.P. without status migra 12/30/2018 Z79.899 Other terminal manager (current) drug therapy Roderick Jean, N.P. 12/30/2018 R25.1 Tremor, unspecified Roderick Jean, N.P. 12/30/2018 R53.83 Other fatigue Roderick Jean, N.P. 09/29/2018 G35 Multiple sclerosis Roderick Jean, N.P. 09/29/2018 G43.909 Migraine, unspecified, not intractable, Roderick Jean, N.P. without status migra 09/29/2018 Z79.899 Other terminal manager (current) drug therapy Roderick Jean, N.P. Plan of Treatment Future Appointment(s):06/30/2019 8:45 am - Bucky Porter M.D. at [facility]03/02/2019 - Bucky Porter M.D.G35 Multiple sclerosisFollow up:Follow up in 4 [id number] Migraine, unspecified, not intractable, without status [id number] Other terminal manager (current) drug heivlgdC47.1 Tremor, unspecified Functional Status Description No Information Available Mental Status Description No Information Available Referrals Description No Information Available
[2019-03-31 12:16] VITALS: BP 139/96
--- NOTE | 2019-03-31 12:52 | UC ---
Ear Complaint HPI - HPI Summary HPI Summary: Patient presents to urgent care with 2-3 days progressive left ear pain. Patient states it is pressure-like it was in her upper jaw but states notable to the ear. Patient states when she opens her mouth she feels popping in her ear. Patient denies nausea vomiting. Patient took Motrin yesterday but no analgesia today. Patient without difficulty swallowing. Don't intraoral edema. No bad taste in her mouth. Patient denies trauma. No sinus congestion. No fevers or chills. Patient denies headache no vision changes. Patient without shortness of breath. Patient did not take any medicines today. Patient states she is not . Medications reviewed this visit. - History of Current Complaint Chief Complaint: UCEar Stated Complaint: JAW PAIN Time Seen by Provider: 03/31/19 12:45 Hx Obtained From: Patient Hx Last Menstrual Period: 03/2019 ?: No Onset/Duration: Gradual Onset Severity Initially: Moderate Severity Currently: Moderate Pain Intensity: 7 Pain Scale Used: 0-10 Numeric - Allergies/Home Medications Allergies/Adverse Reactions: Allergies Allergy/AdvReac Type Severity Reaction Status Date / Time No Known Allergies Allergy Verified 03/31/19 12:09 Home Medications: Home Medications Ibuprofen TAB* [Advil TAB*] 200 mg PO ONCE 03/31/19 [History Confirmed 03/31/19] Siponimod [Mayzent] 0.25 mg PO SEE INSTRUCTIONS 03/31/19 [History Confirmed ] PMH/Surg Hx/FS Hx/Imm Hx Previously Healthy: Yes - MS - no current treatment - Surgical History Surgical History: Yes Surgery Procedure, Year, and Place: BILATERAL FEET SURGERY TO REMOVE BONE;. WISDOM TEETH;. SPINAL TAP IN PAST; - Family History Known Family History: Positive: Cardiac Disease, Other - CVA - Social History Occupation: Disabled Lives: With Family Alcohol Use: Rare Substance Use Type: None Smoking Status (MU): Never Smoked Tobacco Review of Systems All Other Systems Reviewed And Are Negative: Yes Constitutional: Positive: Negative Skin: Positive: Negative Eyes: Positive: Negative ENT: Positive: Ear Ache, Sinus Congestion Respiratory: Positive: Negative Cardiovascular: Positive: Negative Gastrointestinal: Positive: Negative Physical Exam - Summary Physical Exam Summary: Vital Signs Reviewed: Yes A+Ox3, no distress Eyes: Conjunctiva Clear, BROOKE. EOM intact and full ENT: Hearing grossly normal fluid left ear, mild erythema, turbiantes without inflammation, pt with no pnd. no dental pain, no fluctuance at gumline, buccal membrane, mmoist, uvula midline, no exudate, no erythema. no TMJ pain. no mastoid pain. Pt with pain anteror/inferior lobe tracking to zygmoatic, no edema Neck: Positive: Supple, no la Respiratory: Positive: No respiratory distress, No accessory muscle use + CTA throughout no w/r Cardiovascular: RRR nl s1, s2 no m/r CBT <2 sec abd soft + BS nt/nd no guarding, no distension Musculoskeletal Exam: ERAZO x 4 without difficulty Strength Intact, ROM Intact Neurological: Positive: Alert, + sensation throughout Psychological: Positive: Normal Response To examiner Skin: Positive: no rash, no ecchymosis Triage Information Reviewed: Yes Vital Signs: Initial Vital Signs Temp 98.9 F 03/31/19 12:10 Pulse 80 03/31/19 12:10 Resp 18 03/31/19 12:10 BP 139/96 03/31/19 12:10 Pulse Ox 100 03/31/19 12:10 Ear Complaint Course/Dx - Course Course Of Treatment: Patient with progressive pressure pain in the left ear. Patient states when she opens her mouth she feels increased pressure ear. No fevers or chills. Patient denies difficulty swallowing. No analgesia taken. On exam vital signs are stable. Patient does have little fluid little erythema of the left ear. Patient with tenderness anterior tracking along the ear. No intraoral lesions. Discussed with patient Motrin obvious ear infection concerning based on her complaints. Patient also does have a history of MS. We'll start Augmentin. Warm water rinses. Strict return precautions. Motrin Tylenol. Patient comfortable agreement with plan. - Differential Dx/Diagnosis Provider Diagnosis: Left otitis media Discharge ED - Sign-Out/Discharge Documenting (check all that apply): Patient Departure All imaging exams completed and their final reports reviewed: No Studies - Discharge Plan Condition: Stable Disposition: HOME Prescriptions: Amoxicillin/Clavulanate TAB* [Augmentin TAB 875*] 875 mg PO BID #20 tab Patient Education Materials: Ear Infection (ED) Referrals: Martina Valera MD [Primary Care Provider] - Additional Instructions: - Take antibiotics 2 times a day as prescribed - Okay to alternate ibuprofen (Advil, Motrin)600mg and Tylenol (acetaminophen) every 3 hours for pain or fever. Take with food. Do NOT take for more than 4-5 days. - Okay to apply warm soaks to your cheek area - As discussed, your exam supports an early ear infection - the provider did not see any signs of infection inside your mouth. If you develop fever, chills, increased pain, swelling inside your mouth or any other concerns it is recommended you go to the emergency department for further evaluation and treatment Contact your doctor for a recheck next week. Contact your doctor with questions or concerns - Billing Disposition and Condition Condition: STABLE Disposition: Home
[2019-03-31] MEDS ORDERED: Acetaminophen TAB* 325 MG PO ONE (12:58)
== END 2019-03-31 13:07 | disposition home or self-care (01) ==
LOC: UCCORT 11:22
DX: H66.92 Otitis media, unspecified, left ear (principal); G35 Multiple sclerosis
CPT/HCPCS: 99212; A9270-GY; G0463

== ENCOUNTER 2019-06-01 13:59 | Emergency (ER) | payer OTHER ==
--- OUTSIDE RECORDS SUMMARY | 2019-06-01 14:18 | XMS REPORT | Summary of Care ---
:1995 Author Organization [facility] Address [address] [place] [address] Care Team Providers Name Role Phone Martina Valera Primary Care Provider Reason for Visit Reason Comments Follow Up Patient is having jaw pain and pain in both ears + ear infection in left ear. Encounter Details Date Type Department Care Team Description [facility] Acute suppurative otitis media of left ear without spontaneous rupture of tympanic membrane, recurrence not specified (Primary Dx); Practice [employer] Asthma, unspecified asthma severity, unspecified whether complicated, unspecified whether persistent; [address] ETD (Eustachian tube dysfunction), [place] [address] [place] [address] [phone] Allergies Active Allergy Reactions Severity Noted Date Comments Kiwi Extract Swelling 12/24/2016 Throat swelling documented as of this encounter (statuses as of 04/07/2019) Medications Medication Sig Dispensed Refills Start End Date Status Date Cholecalciferol Take 2 Caps by 0 Active (VITAMIN D3 PO) mouth DAILY. amoxicillin-clavulan TK 1 T PO BID 0 Active ic acid (AUGMENTIN) 9 875-125 MG Oral TabIndications: Acute suppurative otitis media of left ear without spontaneous rupture of tympanic membrane, recurrence not specified AIMOVIG 70 MG/ML 0 Active Subcutaneous 9 Solution Auto-injector albuterol HFA Take 2 Puffs 1 Inhaler 3 Active (VENTOLIN HFA) 108 by inhalation 9 (90 Base) MCG/ACT TWICE DAILY. Inhalation Aero SolnIndications: Asthma, unspecified asthma severity, unspecified whether complicated, unspecified whether persistent fluticasone-salmeter Take 1 INHL by 60 Each 0 04/07/20 Discontinued ol diskus (ADVAIR) inhalation 8 19 250-50 MCG/DOSE TWICE DAILY. Inhalation AEROSOL POWDER, BREATH ACTIVATED gabapentin Take 100 mg by 0 04/07/20 Discontinued (NEURONTIN) 100 MG mouth THREE 19 Oral Cap TIMES DAILY. nortriptyline Take 100 mg by 0 04/07/20 Discontinued (PAMELOR) 50 MG Oral mouth DAILY. 19 Cap Naratriptan HCl 1 MG Take by mouth 0 04/07/20 Discontinued Oral Tab NEEDED 19 (migraine). albuterol HFA Take 2 Puffs 1 Inhaler 3 04/07/20 Discontinued (VENTOLIN HFA) 108 by inhalation 9 19 (Reorder) (90 Base) MCG/ACT TWICE DAILY. Inhalation Aero SolnIndications: Asthma, unspecified asthma severity, unspecified whether complicated, unspecified whether persistent documented as of this encounter (statuses as of 04/07/2019) Active Problems Problem Noted Date MS (multiple sclerosis) 08/26/2018 Overview: Diagnosis 01/[address] [facility] [address] Davonte Chacon / Dr Porter - Depression 09/16/2017 Complicated migraine 03/30/2017 BMI 50.0-59.9, adult 12/24/2016 Migraine without aura and without status migrainosus, not intractable 2016 Overview: Complicated migraine - [place] [facility] [place] Estrogen contraindicated - documented as of this encounter (statuses as of 04/07/2019) Social History Tobacco Use Types Packs/Day Years Used Date Never Smoker 0 Smokeless Tobacco: Never Used Alcohol Use Drinks/Week oz/Week Comments Yes Sex Assigned at Date Recorded Not on file Job Start Date Occupation Industry Not on file Not on file Not on file Travel History Travel Start Travel End No recent travel history available. documented as of this encounter Last Filed Vital Signs Vital Sign Reading Time Taken Comments Blood Pressure 118/76 04/07/2019 9:06 AM EDT Pulse - - Temperature 36.9 04/07/2019 9:06 AM EDT C (98.5 F) Respiratory Rate - - Oxygen Saturation - - Inhaled Oxygen Concentration - - Weight 154.2 kg (340 lb) 04/07/2019 9:06 AM EDT Height 162.6 cm (5' 4") 04/07/2019 9:06 AM EDT Body Mass Index 58.36 04/07/2019 9:06 AM EDT documented in this encounter Patient Instructions Patient InstructionsEleni Lim FNP - 04/07/2019 9:00 AM EDTFinish antibiotic Ibuprofen with Tylenol up to 3 times a day for pain Sloane or Mucinex may help congestion Call if symptoms worsenElectronically signed by Eleni Lim FNP at 2018 9:24 AM EDT documented in this encounter Progress Notes Eleni Lim FNP - 04/07/2019 9:00 AM EDT PATIENT: Molly Simon : 1995 DATE OF SERVICE: 04/07/2019 CHIEF COMPLAINT: Chief Complaint Patient presents with Follow Up Patient is having jaw pain and pain in both ears + ear infection in left ear. Subjective HISTORY OF PRESENT ILLNESS: Molly Simon is a 23-y.o. female. HPI Seen in on 03/31/19 for left ear pain radiating into jaw. Reports reviewed - Dx OM and Rx Augmentin x 10 days - feels has sx in right ear now - feels clogged. Also requesting refill of Albuterol - has been having increased asthma sx recently. Denies allergies Past Medical History: Diagnosis Date Bipolar affective disorder (HCC) Family History Problem Relation Age of Onset Alcohol/Drug Mother Arthritis Mother wrist Psychiatry Mother bipolar , anxiety, depression Alcohol/Drug Father Psychiatry Father bipolar ,anxiety, depression Thyroid Father unsure Diabetes Unknown GM Current Outpatient Medications Medication Sig AIMOVIG 70 MG/ML Subcutaneous Solution Auto-injector albuterol HFA (VENTOLIN HFA) 108 (90 Base) MCG/ACT Inhalation Aero Soln Take 2 Puffs by inhalation TWICE DAILY. amoxicillin-clavulanic acid (AUGMENTIN) 875-125 MG Oral Tab TK 1 T PO BID Cholecalciferol (VITAMIN D3 PO) Take 2 Caps by mouth DAILY. No current facility-administered medications for this visit. Allergies Allergen Reactions Kiwi Extract Swelling Throat swelling Social History Socioeconomic History Marital status: Single Spouse name: Not on file Number of children: Not on file Years of education: Not on file Highest education level: Not on file Occupational History Not on file Social Needs Financial resource strain: Not on file Food insecurity: Worry: Not on file Inability: Not on file Transportation needs: Medical: Not on file Non-medical: Not on file Tobacco Use Smoking status: Never Smoker Smokeless tobacco: Never Used Substance and Sexual Activity Alcohol use: Yes Drug use: No Sexual activity: Yes Partners: Male control/protection: Injection Lifestyle Physical activity: Days per week: Not on file Minutes per session: Not on file Stress: Not on file Relationships Social connections: Talks on phone: Not on file Gets together: Not on file Attends rastafarian service: Not on file Active member of club or organization: Not on file Attends meetings of clubs or organizations: Not on file Relationship status: Not on file Intimate partner violence: Fear of current or ex partner: Not on file Emotionally abused: Not on file Physically abused: Not on file Forced sexual activity: Not on file Other Topics Concern Not on file Social History Narrative Not on file REVIEW OF SYSTEMS: Review of Systems Constitutional: Negative for chills, fever and malaise/fatigue. HENT: Positive for congestion and ear pain. Negative for ear discharge, hearing loss and sore throat. Respiratory: Negative for cough, sputum production, shortness of breath and wheezing. Cardiovascular: Negative for chest pain. Skin: Negative for rash. Neurological: Negative for dizziness and headaches. Objective PHYSICAL EXAM: VITALS: BP 118/76 | Temp 98.5 F (36.9 C) | Ht 5' 4" (1.626 m) | Wt 340 lb (154.2 kg) | BMI 58.36 kg/m Body mass index is 58.36 kg/m. Physical Exam Vitals signs reviewed. Constitutional: Appearance: Normal appearance. She is obese. HENT: Head: Normocephalic and atraumatic. Right Ear: Tympanic membrane is retracted. Tympanic membrane is not erythematous. Left Ear: Tympanic membrane is retracted. Tympanic membrane is not erythematous. Nose: Rhinorrhea present. No mucosal edema. Mouth/Throat: Mouth: Mucous membranes are moist. No oral lesions. Pharynx: No oropharyngeal exudate or posterior oropharyngeal erythema. Eyes: Pupils: Pupils are equal, round, and reactive to light. Neck: Musculoskeletal: Normal range of motion. Cardiovascular: Rate and Rhythm: Normal rate and regular rhythm. Pulmonary: Effort: Pulmonary effort is normal. No respiratory distress. Breath sounds: Normal breath sounds. No wheezing, rhonchi or rales. Lymphadenopathy: Cervical: No cervical adenopathy. Skin: General: Skin is warm and dry. Capillary Refill: Capillary refill takes less than 2 seconds. Coloration: Skin is not cyanotic. Neurological: Mental Status: She is alert and oriented to person, place, and time. Cranial Nerves: Cranial nerves are intact. Gait: Gait normal. ASSESSMENT / IMPRESSION: ICD-9-CM ICD-10-CM 1. Acute suppurative otitis media of left ear without spontaneous rupture of tympanic membrane, recurrence not specified 382.00 H66.002 amoxicillin- clavulanic acid (AUGMENTIN) 875-125 MG Oral Tab 2. Asthma, unspecified asthma severity, unspecified whether complicated, unspecified whether persistent 493.90 J45.909 albuterol HFA (VENTOLIN HFA) 108 ( 90 Base) MCG/ACT Inhalation Aero Soln 3. ETD (Eustachian tube dysfunction), bilateral 381.81 H69.83 Plan Finish antibiotic Ibuprofen with Tylenol up to 3 times a day for pain Sloane or Mucinex may help congestion Call if symptoms worsen Author: MEAGAN Tubbs 04/07/2019 09:29 documented in this encounter Plan of Treatment Health Maintenance Due Date Last Done Comments CHLAMYDIA SCREENING 1995 PAP SMEAR 1995 PNEUMOCOCCAL 0-64 YRS (1 of 1 2000 - PPSV23) HPV IMMUNIZATION SERIES (1 - 2009 Female 3-dose series) DEPRESSION SCREENING 09/16/2018 09/16/2017, 09/16/2017 INFLUENZA VACCINE (#1) 2019 MENINGOCOCCAL VACCINE IMM Aged Out No longer eligible based on patient's age to complete this topic documented as of this encounter Goals Goal Patient Goal Associated Recent Patient-Stated? Author Type Problems Progress Depression Depression No [place], screen (PHQ-9) MD Martina total score < 5 Note: This is an individualized treatment (depression) goal for Patience Predmore: Displayed above is your goal for a depression screening (PHQ-9) score that would indicate good control of your depression. Keep a regular sleep schedule Lifestyle No Martina Valera MD Note: This is an individualized lifestyle goal for Molly Predchenta: Please maintain a regular sleep schedule. This may help with some symptoms of depression. Take all prescribed medications as directed Self-management Martina Solomon MD Note: This is an individualized self-management goal for Molly Simon: Please take all prescribed medications as directed. 1. Do not skip doses. If you cannot afford your medications, talk with your doctor. 2. Use a pill reminder system such as a pill box if needed. Your pharmacist can help you with this. 3. Contact your Pharmacy 5 days before your medication runs out. If you cannot take your medications for any reasons, talk with your doctor. 4. Please bring all of your medication bottles and inhalers (or a list of all your medications/inhalers) with you to every visit. Potential barriers to meeting all of your care plan goals will continue to be addressed on an ongoing basis. documented as of this encounter Results Not on filedocumented in this encounter Visit Diagnoses Diagnosis Acute suppurative otitis media of left ear without spontaneous rupture of tympanic membrane, recurrence not specified - Primary Asthma, unspecified asthma severity, unspecified whether complicated, unspecified whether persistent ETD (Eustachian tube dysfunction), bilateral documented in this encounter Guarantor Name Account Type Relation to Date of Phone Billing Patient Address Molly Simon Personal/Family 1995 [address] [phone] [place], [place] (Work) [address] documented as of this encounter
--- OUTSIDE RECORDS SUMMARY | 2019-06-01 14:18 | XMS REPORT | Summary of Care ---
:1995 Author Organization [facility] Address [address] [place] [address] Care Team Providers Name Role Phone Martina Valera Primary Care Provider Reason for Visit Reason Comments Cough Pt c/o cough, sore throat, generalized malaise that has been worsening over the past week. Encounter Details Date Type Department Care Team Description 04/11/2019 Office Visit Eleni Fortune, Asthma, unspecified asthma severity, unspecified whether complicated, unspecified whether persistent (Primary Dx); Practice [employer] ETD (Eustachian tube dysfunction), bilateral [address] [place] [address] [place] [address] [phone] Allergies Active Allergy Reactions Severity Noted Date Comments Kiwi Extract Swelling 12/24/2016 Throat swelling documented as of this encounter (statuses as of 04/11/2019) Medications Medication Sig Dispensed Refills Start Date End Date Status Cholecalciferol Take 2 Caps by 0 Active (VITAMIN D3 PO) mouth DAILY. amoxicillin-clavulanic TK 1 T PO BID 0 03/31/2019 Active acid (AUGMENTIN) 875-125 MG Oral TabIndications: Acute suppurative otitis media of left ear without spontaneous rupture of tympanic membrane, recurrence not specified AIMOVIG 70 MG/ML 0 01/19/2019 Active Subcutaneous Solution Auto-injector albuterol HFA Take 2 Puffs by 1 Inhaler 3 04/07/2019 Active (VENTOLIN HFA) 108 (90 inhalation TWICE Base) MCG/ACT DAILY. Inhalation Aero SolnIndications: Asthma, unspecified asthma severity, unspecified whether complicated, unspecified whether persistent predniSONE (DELTASONE) Take 1 Tab by 10 Tab 0 04/11/2019 04/16/2019 Active 20 MG Oral mouth TWICE DAILY TabIndications: for 5 days. Asthma, unspecified asthma severity, unspecified whether complicated, unspecified whether persistent documented as of this encounter (statuses as of 04/11/2019) Active Problems Problem Noted Date MS (multiple sclerosis) 08/26/2018 Overview: Diagnosis 01/[address] [facility] [address] Davonte Chacon / Dr Porter - Depression 09/16/2017 Complicated migraine 03/30/2017 BMI 50.0-59.9, adult 12/24/2016 Migraine without aura and without status migrainosus, not intractable 2016 Overview: Complicated migraine - At [facility] [place] 03/28 Estrogen contraindicated - documented as of this encounter (statuses as of 04/11/2019) Social History Tobacco Use Types Packs/Day Years [...] Sign Reading Time Taken Comments Blood Pressure 126/86 04/11/2019 9:42 AM EDT Pulse 94 04/11/2019 9:42 AM EDT Temperature 36.9 04/11/2019 9:42 AM EDT C (98.4 F) Respiratory Rate - - Oxygen Saturation 97% 04/11/2019 9:42 AM EDT Inhaled Oxygen Concentration - - Weight 152.9 kg (337 lb) 04/11/2019 9:42 AM EDT Height 162.6 cm (5' 4") 04/11/2019 9:42 AM EDT Body Mass Index 57.85 04/11/2019 9:42 AM EDT documented in this encounter Patient Instructions Patient InstructionsEleni Lim FNP - 04/11/2019 9:40 AM EDTContinue inhaler,Sloane, Mucinex may help too Prednisone as directed - eat first Consider seeing ENT if symptoms persist documented in this encounter Progress Notes Eleni Lim FNP - 04/11/2019 9:40 AM EDT PATIENT: Molly Simon : 1995 DATE OF SERVICE: 04/11/2019 CHIEF COMPLAINT: Chief Complaint Patient presents with Cough Pt c/o cough, sore throat, generalized malaise that has been worsening over the past week. Subjective HISTORY OF PRESENT ILLNESS: Molly Simon is a 23-y.o. female. HPI URI sx x 2 days - recently treated for OM by Urgent Care. Using Albuterol 1-2 times a day and Sloane Past Medical History: Diagnosis Date Bipolar affective [...] PO) Take 2 Caps by mouth DAILY. predniSONE (DELTASONE) 20 MG Oral Tab Take 1 Tab by mouth TWICE DAILY for 5 days. No current facility-administered medications for this visit. [...] file Gets together: Not on file Attends caodaism service: Not on file Active member of [...] REVIEW OF SYSTEMS: Review of Systems Constitutional: Positive for malaise/fatigue. Negative for chills and fever. HENT: Positive for congestion. Respiratory: Positive for cough, shortness of breath and wheezing. Musculoskeletal: Negative for myalgias. Neurological: Negative for dizziness and headaches. Objective PHYSICAL EXAM: VITALS: BP 126/86 | Pulse 94 | Temp 98.4 F (36.9 C) | Ht 5' 4" ( 1.626 m) | Wt 337 lb (152.9 kg) | SpO2 97% | BMI 57.85 kg/m Body mass index is 57.85 kg/m. Physical Exam Vitals signs reviewed. Constitutional: Appearance: Normal appearance. HENT: Head: Normocephalic and atraumatic. Right Ear: Tympanic membrane is retracted. Tympanic membrane is not erythematous. Left Ear: Tympanic membrane is retracted. Tympanic membrane is not erythematous. Nose: Rhinorrhea present. No mucosal edema. Mouth/Throat: Mouth: Mucous membranes are moist. Pharynx: No posterior oropharyngeal erythema. Comments: Post nasal drip Pulmonary: Effort: Pulmonary effort is normal. Breath sounds: Normal breath sounds. Lymphadenopathy: Cervical: No cervical adenopathy. Skin: General: Skin is warm and dry. Coloration: Skin is not cyanotic. Neurological: Mental Status: She is alert and oriented to person, place, and time. Cranial Nerves: Cranial nerves are intact. Gait: Gait normal. ASSESSMENT / IMPRESSION: ICD-9-CM ICD-10-CM 1. Asthma, unspecified asthma severity, unspecified whether complicated, unspecified whether persistent 493.90 J45.909 predniSONE (DELTASONE) 20 MG Oral Tab 2. ETD (Eustachian tube dysfunction), bilateral 381.81 H69.83 Plan Continue inhaler,Sloane, Mucinex may help too Prednisone as directed - eat first Consider seeing ENT if symptoms persist Author: MEAGAN Tubbs 04/11/2019 10:02 documented in this encounter Plan of Treatment [...] Author Type Problems Progress Depression Depression No [place] screen (PHQ-9) MD Martina total score < 5 Note: This is an individualized treatment (depression) goal for Patience Predmore: Displayed above is your goal for a depression screening (PHQ-9) score that would indicate good control of your depression. Keep a regular sleep schedule Lifestyle Martina Solomon MD Note: This is an individualized lifestyle goal for Patience Predmore: Please maintain a regular sleep schedule. This may help with some symptoms of depression. Take all prescribed medications as directed Self-management No Martina Valera MD Note: This is an individualized self-management goal for Patience Predmore: Please take all prescribed medications as directed. [...] filedocumented in this encounter Visit Diagnoses Diagnosis Asthma, unspecified asthma severity, unspecified whether complicated, unspecified whether persistent - Primary ETD (Eustachian tube dysfunction), bilateral documented in this encounter Guarantor Name Account Type Relation to Date of Phone Billing Patient Address Molly Simon Personal/Family 1995 [phone] [phone] [place], [place] (Work) [address] documented as of this encounter
[2019-06-01 16:20] LABS: ABS Lymphocytes 0.4 10^3/ul (1.0-4.8); ABS Monocytes 0.7 10^3/ul (0-0.8); Eosinophil % 0.6 %; Hematocrit 45 % (35-47); Hemoglobin 15.6 g/dL (12.0-16.0); Lymphocyte % 6.5 %; Mean Corpuscular HGB Conc 35 g/dL (31-36); Mean Corpuscular Hemoglobin 30 pg (27-31); Mean Corpuscular Volume 86 fL (80-97); Mean Platelet Volume 8.5 fL (7.4-10.4); Nucleated Red Blood Cells % 0.4; Platelet Count 294 10^3/uL (150-450); Red Blood Count 5.26 10^6 /uL (3.70-4.87); Red Cell Distribution Width 14 % (10-15); White Blood Count 6.2 10^3/uL (3.5-10.8)
[2019-06-01 16:29] LABS: HCG Pregnancy < 0.60 mIU/mL
--- NOTE | 2019-06-01 16:33 | ED ---
Headache - HPI Summary HPI Summary: This pt is a 23 y/o female, with hx of MS, presenting to [facility] c/o headache, numbness and tingling. Pt reports she has hx of aura migraines and usually with these migraines she feels her fingertips tingling and travel up her body, has speech impairment, and then experiences a headache. Today at around 12:30 pt reports she first began to experience a headache and then her fingertips began tingling. She also notes the back of her throat became numb and had a hard time breathing. Pt currently reports she still feels "foggy" but is feeling better. Pt is still c/o headache. Her neurologist is Dr. Porter, however she also sees a neurologist in [place]. LMP: April 2019, around the . - History Of Current Complaint Chief Complaint: EDNeurologicalDeficit Stated Complaint: STROKE LIKE SYMPTOMS PER SISTER Hx Obtained From: Patient Hx Last Menstrual Period: 03/2019 Onset/Duration: Started hours ago, Still Present Currently Pain Is: Current Pain Scale(0-10)= - 7, Moderate Timing: Hours Character: Migraine Location of Headache: Diffuse Aggravating Factor: Nothing Allevating Factors: Nothing Associated Signs And Symptoms: Other (Noted In Comments) - POSITIVE: "foggy," numbness, tingling - Allergies/Home Medications Allergies/Adverse Reactions: Allergies Allergy/AdvReac Type Severity Reaction Status Date / Time No Known Allergies Allergy Verified 06/01/19 14:09 Home Medications: Home Medications Norethindrone (NF) [Queenie (NF)] 0.35 mg PO DAILY 06/01/19 [History Confirmed 06/01/19] Siponimod [Mayzent] 2 mg PO DAILY 06/01/19 [History Confirmed 06/01/19] PMH/Surg Hx/FS Hx/Imm Hx Endocrine/Hematology History: Denies: Hx Diabetes Cardiovascular History: Denies: Hx Hypertension, Hx Pacemaker/ICD Respiratory History: Denies: Hx Asthma History: Denies: Hx Dialysis, Hx Renal Disease - STONES ONLY Sensory History: Reports: Hx Contacts or Glasses Denies: Hx Hearing Aid Opthamlomology History: Reports: Hx Contacts or Glasses Neurological History: Reports: 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, MS Psychiatric History: Reports: Hx Depression, Hx Panic Disorder - Surgical History Surgical History: Yes Surgery Procedure, Year, and Place: BILATERAL FEET SURGERY TO REMOVE BONE;. WISDOM TEETH;. SPINAL TAP IN PAST; Infectious Disease History: No Infectious Disease History: Denies: Traveled Outside the [place] in Last 30 Days - Family History Known Family History: Positive: Cardiac Disease, Other - CVA - Social History Alcohol Use: Rare Hx Substance Use: No Substance Use Type: Reports: None Hx Tobacco Use: No Smoking Status (MU): Never Smoked Tobacco Review of Systems Negative: Fever Cardiovascular: Negative Respiratory: Negative Gastrointestinal: Negative Neurological: Other - POSITIVE: "foggy" Positive: Headache, Paresthesia, Numbness All Other Systems Reviewed And Are Negative: Yes Physical Exam - Summary Physical Exam Summary: VITAL SIGNS: Reviewed. GENERAL: Patient is a well-developed and overweight female who is lying comfortable in the stretcher. Patient is not in any acute respiratory distress. HEAD AND FACE: No signs of trauma. No ecchymosis, hematomas or skull depressions. No sinus tenderness. EYES: PERRLA, EOMI x 2, No injected conjunctiva, no nystagmus. EARS: Hearing grossly intact. Ear canals and tympanic membranes are within normal limits. MOUTH: Oropharynx within normal limits. NECK: Supple, trachea is midline, no adenopathy, no JVD, no carotid bruit, no c- spine tenderness, neck with full ROM. CHEST: Symmetric, no tenderness at palpation LUNGS: Clear to auscultation bilaterally. No wheezing or crackles. CVS: Regular rate and rhythm, S1 and S2 present, no murmurs or gallops appreciated. ABDOMEN: Soft, non-tender. No signs of distention. No rebound no guarding, and no masses palpated. Bowel sounds are normal. EXTREMITIES: FROM in all major joints, no edema, no cyanosis or clubbing. NEURO: Alert and oriented x 3. No acute neurological deficits. Speech is normal and follows commands. NIH score is 0. GCS: 15 SKIN: Dry and warm Triage Information Reviewed: Yes Vital Signs On Initial Exam: Initial Vitals Temp Pulse Resp BP Pulse Ox 98.5 F 96 16 140/85 97 06/01/19 14:05 06/01/19 14:05 06/01/19 14:05 06/01/19 14:05 06/01/19 14:05 Vital Signs Reviewed: Yes Procedures - Sedation Patient Received Moderate/Deep Sedation with Procedure: No Diagnostics - Vital Signs Vital Signs Temp Pulse Resp BP Pulse Ox 06/01/19 14:05 98.5 F 96 16 140/85 97 - Laboratory Lab Results: Lab Results 06/01/19 Range/Units 15:55 WBC 6.2 (3.5-10.8) 10^3/uL RBC 5.26 H (3.70-4.87) 10^6 /uL Hgb 15.6 (12.0-16.0) g/dL Hct 45 (35-47) % MCV 86 (80-97) fL MCH 30 (27-31) pg MCHC 35 (31-36) g/dL RDW 14 (10-15) % Plt Count 294 (150-450) 10^3/uL MPV 8.5 (7.4-10.4) fL Neut % (Auto) 81.0 % Lymph % (Auto) 6.5 % [place] % (Auto) 11.5 % Eos % (Auto) 0.6 % Baso % (Auto) 0.4 % Absolute Neuts (auto) 5.0 (1.5-7.7) 10^3/ul Absolute Lymphs (auto) 0.4 L (1.0-4.8) 10^3/ul Absolute Monos (auto) 0.7 (0-0.8) 10^3/ul Absolute Eos (auto) 0.0 (0-0.6) 10^3/ul Absolute Basos (auto) 0.0 (0-0.2) 10^3/ul Absolute Nucleated RBC 0.0 10^3/ul Nucleated RBC % 0.4 Result Diagrams: 06/01/19 15:55 06/01/19 15:55 Lab Statement: Any lab studies that have been ordered have been reviewed, and results considered in the medical decision making process. - CT Brain CT CT Interpretation Completed By: Radiologist Summary of CT Findings: IMPRESSION: No evidence for acute intracranial abnormality. Dr. Fitzgerald has reviewed this report. - EKG 15:49 Cardiac Rate: NL - at 86 bpm EKG Rhythm: Sinus Rhythm Summary of EKG Findings: EKG at 15:49 shows normal sinus rhythm at a rate of [address] elevations. Inverted T wave in lead III. National Institutes Of Health - NIH Scale Level of Consciousness: Alert/Keenly Responsive Ask Patient the Month and His/Her Age: Both Correct Ask Pt to Open/Close Eyes and Facility Mechanic/Release Non-Paretic Hand: Both Correctly Best Gaze (Only Horizontal Eye Movement): Normal Visual Field Testing: No Visual Loss Facial Paresis-Pt to Smile & Close Eyes or Grimace Symmetry: Normal/Symmetrical Motor Function - Right Arm: No Drift-Holds 10 Seconds Motor Function - Left Arm: No Drift-Holds 10 Seconds Motor Function - Right Leg: No Drift-Holds 10 Seconds Motor Function - Left Leg: No Drift-Holds 10 Seconds Limb Ataxia-Must be out of Proportion to Weakness Present: Absent Sensory (Use Pinprick to Test Arms/Legs/Trunk/Face): Normal Best Language (Describe Picture, Name Items): No Aphasia Dysarthria (Read Several Words): Normal Extinction and Inattention: No Abnormality Total Score: 0 Headache Course/Dx - Course Assessment/Plan: Patient is a 23-year-old female who presents to the emergency department with a chief complaint of having a headache. Patient reports that is a little bit different from her usual migraine headaches. Patient has a past medical history significant for multiple sclerosis. Test results without any significant abnormality except for glucose of 102, urinalysis is contaminated. Head CT negative for any acute intracranial abnormality. In the ED course the patient was given IV fluids, Reglan and Benadryl. The patient was observed for a couple hours in the ED and the symptoms resolved. At this point, I discussed all the findings and test results with the patient. She was instructed to return to the emergency room immediately if any of the symptoms return or worsen. Patient understands and agrees. Neurological exam before discharge: Patient is alert and oriented x 3. No acute neurological deficits. Patient's vital signs are stable. Patient is to follow up with her PCP in the next 2 3 days. She understands and agrees. Plan of care was discussed with the patient and patient understands and agrees with the plan of care. All questions were answered at patient satisfaction. There were no further complaints or concerns. - Diagnoses Differential Diagnosis/HQI/PQRI: CVA, TIA, Epidural Hematoma, Subdural Hematoma , Migraine, Sinus Headache, Tension Headache Provider Diagnoses: Headache Discharge ED - Sign-Out/Discharge Documenting (check all that apply): Patient Departure - Discharge home - Discharge Plan Condition: Stable Disposition: HOME Patient Education Materials: General Headache (ED) Referrals: Martina Valera MD [Primary Care Provider] - Additional Instructions: FOLLOW UP WITH YOUR PRIMARY CARE PROVIDER IN 2-3 DAYS. RETURN TO THE EMERGENCY DEPARTMENT FOR ANY WORSENING OR NEW SYMPTOMS. - Billing Disposition and Condition Condition: STABLE Disposition: Home - Attestation Statements Document Initiated by Elbaibe: Yes Documenting Scribe: Carley Landin Provider For Whom Scribe is Documenting (Include Credential): Shlomo Fitzgerald MD Scribe Attestation: Carley Hensley, scribed for Shlomo Fitzgerald MD on 06/01/19 at 2126. Scribe Documentation Reviewed: Yes Provider Attestation: The documentation as recorded by the Carley sequeira accurately reflects the service I personally performed and the decisions made by Shlomo oliver MD Status of Scribe Document: Viewed
[2019-06-01] MEDS: diPHENhydraMINE IV* 50 MG/ML 1 ml VIAL (BENADRYL) IV ONE (16:42)
[2019-06-01] MEDS: Metoclopramide IV* 5 MG/ML 2 ML VIAL IV SLOW PU ONE (16:43)
[2019-06-01 16:48] LABS: ALT 51 U/L (7-52); AST 32 U/L (13-39); Albumin 3.9 g/dL (3.2-5.2); Albumin/Globulin Ratio 1.3 (1-3); Alkaline Phosphatase 73 U/L (34-104); Anion Gap 7 mmol/L (2-11); BUN/Creatinine Ratio 18.2 (8-20); Blood Urea Nitrogen 12 mg/dL (6-24); CO2 Carbon Dioxide 23 mmol/L (22-32); Calcium 9.6 mg/dL (8.6-10.3); Chloride 108 mmol/L (101-111); EGFR African American 133.1 (>60); Globulin 3.1 g/dL (2-4); Glucose 102 mg/dL (70-100); Potassium 3.9 mmol/L (3.5-5.0); Sodium 138 mmol/L (135-145)
[2019-06-01 16:52] LABS: Urine Appearance Cloudy; Urine Bilirubin Negative (Negative); Urine Blood Negative (Negative); Urine Color Yellow; Urine Glucose Negative (Negative); Urine Ketones Negative (Negative); Urine Nitrite Negative (Negative); Urine Protein Negative (Negative); Urine Specific Gravity 1.028 (1.010-1.030); Urine Urobilinogen Negative (Negative)
[2019-06-01 16:57] LABS: Urine Bacteria 1+ (Absent); Urine Red Blood Cell 1+(3-5/hpf) (Absent); Urine Squamous Epithelial Cell Present (Absent); Urine White Blood Cell Trace(0-5/hpf) (Absent)
[2019-06-01 20:08] VITALS: BP 157/89
== END 2019-06-01 20:00 | disposition home or self-care (01) ==
LOC: ED 13:59
DX: R51 Headache (principal); F32.9 Major depressive disorder, single episode, unspecified; Z79.899 Other long term (current) drug therapy
CPT/HCPCS: 36415; 70450; 80053; 81003; 81015; 83605; 84702; 85025; 87086; 93005; 96374; 96375; 99282; J1200; J2765